=== PATIENT | male | born 1945 | race Caucasian/White ===

== ENCOUNTER 2020-12-30 08:45 | Emergency (ER) | payer MEDICARE, BC ==
[~2020-12-30] VITALS: Ht 182.9 cm; Wt 145.4 kg
[~2020-12-30 08:45] MED LIST: APIX5TAB3 PO; CARV-50 PO; CHOL50004 PO; CYAN500L3 PO; FENO135C PO; FURO40TA4 PO; GLIM4TAB7 PO; HYDR-4069 PO; IRON150C13 PO; LANTUS SUBCUT; NIA500ERT PO; SIMV-45 PO; SITA100T15 PO
[2020-12-30 09:11] VITALS: BP 153/63
[2020-12-30] MEDS ORDERED: ONDA4TAB6 PO (11:55)
[2020-12-30] MEDS ORDERED: HYDR-3965 PO (11:55)
[2020-12-30] MEDS ORDERED: ketorolac tromethamine 15mg/ml inj. IM ONE (11:55)
== END 2020-12-30 12:47 | disposition home or self-care (01) ==
LOC: ER 08:46
DX: S52.615A Nondisplaced fracture of left ulna styloid process, initial encounter for closed fracture (principal); I48.91 Unspecified atrial fibrillation; I10 Essential (primary) hypertension; I25.2 Old myocardial infarction; E11.9 Type 2 diabetes mellitus without complications; Z95.0 Presence of cardiac pacemaker; Z72.89 Other problems related to lifestyle; Z98.890 Other specified postprocedural states; Z88.8 Allergy status to other drugs, medicaments and biological substances; Z79.4 Long term (current) use of insulin; Z79.899 Other long term (current) drug therapy; X58.XXXA Exposure to other specified factors, initial encounter; Y93.89 Activity, other specified; Y92.89 Other specified places as the place of occurrence of the external cause; Y99.8 Other external cause status
CPT/HCPCS: 29125; 73110; 82948; 99284

== ENCOUNTER 2021-10-01 12:52 | Inpatient (IN) | payer MEDICARE, BC ==
[~2021-10-01] VITALS: Ht 180.3 cm; Wt 143.2 kg
[~2021-10-01 12:52] MED LIST changes: +ONDA4TAB6 PO
[2021-10-01 13:35] LABS: EOSINOPHILS # (AUTO) 0.1 X10'3 (0-0.9); HEMOGLOBIN 10.2 g/dl (14.0-17.9); LYMPHOCYTES # (AUTO) 0.8 X10'3 (1.1-4.8); MEAN CORPUSCULAR HGB CONC 32.2 g/dL (33.0-36.5); MEAN PLATELET VOLUME 8.3 FL (7.4-10.4); MONOCYTES # (AUTO) 1.7 X10'3 (0-0.9); WHITE BLOOD COUNT 6.9 X10'3 (4.5-11.0)
[2021-10-01 13:39] LABS: BASOPHILS % (AUTO) 0.5 % (0-1); HEMATOCRIT 31.6 % (42.0-52.0); LYMPHOCYTES % (AUTO) 12.1 % (21-51); MEAN CORPUSCULAR HEMOGLOBIN 29.8 PG (27.0-31.0); MEAN CORPUSCULAR VOLUME 92.5 FL (78-98); MONOCYTES % (AUTO) 24.6 % (2-12); NEUTROPHILS # (AUTO) 4.3 X10'3 (1.8-7.7); NEUTROPHILS % (AUTO) 61.8 % (42-75); PLATELET COUNT 149 X10'3 (140-440); RED BLOOD COUNT 3.42 X10'6 (4.70-6.10); RED CELL DISTRIBUTION WIDTH 15.8 % (11.5-14.5)
[2021-10-01 13:52] LABS: ALANINE AMINOTRANSFERASE 21 U/L (12-78); ALBUMIN/GLOBULIN RATIO 0.7 (1.1-1.5); ALKALINE PHOSPHATASE 30 IU/L (46-116); ANION GAP 11 (8-16); ASPARTATE AMINO TRANSFERASE 37 U/L (10-37); BILIRUBIN,TOTAL 0.6 MG/DL (0.1-1.0); BLOOD UREA NITROGEN 70 MG/DL (7-18); CALCIUM 9.3 MG/DL (8.5-10.1); CHLORIDE 101 MMOL/L (99-107); CREATININE 4.68 MG/DL (0.60-1.10); GLUCOSE 131 MG/DL (70-104); POTASSIUM 3.8 MMOL/L (3.5-5.1); SODIUM 139 MMOL/L (135-145); TOTAL PROTEIN 7.5 G/DL (6.4-8.2); eGFR 12 ML/MIN
[2021-10-01 14:09] LABS: PLATELET ESTIMATE NORMAL; TOTAL CELLS COUNTED 100
--- NOTE | 2021-10-01 15:10 | NUR ---
PT PLACED IN ROOM. MOD ASSIST TO TRANSFER PT TO [facility]. PT IN WHEELCHAIR AT BASELINE D/T A "BAD HIP AND OTHER PROBLEMS"
[2021-10-01] MEDS ORDERED: APIX2.5T PO (17:34)
[2021-10-01] MEDS ORDERED: ISOS30TA84 PO (17:34)
[2021-10-01] MEDS ORDERED: SEVE800T28 PO (17:34)
[2021-10-01] MEDS ORDERED: FENO135C4 PO (17:34)
[2021-10-01] MEDS ORDERED: SACU1TAB7 PO (17:34)
[2021-10-01] MEDS ORDERED: LANTUS SQ (17:34)
[2021-10-01] MEDS ORDERED: FURO80TA3 PO (17:34)
[2021-10-01] MEDS ORDERED: SITA100T11 PO (17:34)
[2021-10-01] MEDS ORDERED: METO-384 PO (17:35)
[2021-10-01] MEDS ORDERED: INSU100I8 (17:35)
[2021-10-01] MEDS ORDERED: mag hydrox/Alum hydrox/simeth 30ml oral suspension PO PRN (17:50)
[2021-10-01] MEDS ORDERED: magnesium hydroxide 30ml (MOM) UD suspension PO PRN (17:50)
[2021-10-01] MEDS ORDERED: ondansetron/PF 4mg/2ml inj IV PRN (17:50)
[2021-10-01] MEDS ORDERED: dextrose 50%-water 50ml dispensing syringe IV PRN ×2 (18:55)
[2021-10-01] MEDS ORDERED: glucagon, human recombinant 1mg kit SUBCUT PRN (18:55)
[2021-10-01] MEDS ORDERED: DEXTROSE 15 GM of carb/4 tabs (each vial/BOTTLE has 4 tablets) PO PRN ×2 (18:55)
[2021-10-01 19:23] LABS: HEMOGLOBIN A1C 5.8 % (4.5-6.2)
[2021-10-01] MEDS ORDERED: insulin glargine (Lantus) pen - multi-dose SQ SCH (20:00)
[2021-10-01] MEDS: docusate sod 100mg capsule PO SCH (21:06)
[2021-10-01] MEDS: sevelamer carbonate 800mg tablet PO SCH (21:35)
[2021-10-01] MEDS: sacubitril/valsartan 49mg-51mg tablet PO SCH (21:35)
[2021-10-01] MEDS: insulin glargine (Lantus) pen - multi-dose SQ SCH (22:03)
[2021-10-02] MEDS: heparin, porcine 5000 units/ml vial SQ SCH ×4 (00:30→16:42)
[2021-10-02 02:13] LABS: ALBUMIN 2.9 G/DL (3.4-5.0); ANION GAP 11 (8-16); BASOPHILS # (AUTO) 0.1 X10'3 (0-0.2); BASOPHILS % (AUTO) 0.7 % (0-1); BLOOD UREA NITROGEN 74 MG/DL (7-18); BUN/CREATININE RATIO 15.9 (5.4-32.0); CALCIUM 9.4 MG/DL (8.5-10.1); CHLORIDE 103 MMOL/L (99-107); CREATININE 4.65 MG/DL (0.60-1.10); EOSINOPHILS # (AUTO) 0.2 X10'3 (0-0.9); EOSINOPHILS % (AUTO) 2.2 % (0-6); GLUCOSE 174 MG/DL (70-104); HEMATOCRIT 31.2 % (42.0-52.0); HEMOGLOBIN 10.2 g/dl (14.0-17.9); LYMPHOCYTES % (AUTO) 14.3 % (21-51); MEAN CORPUSCULAR HEMOGLOBIN 30.5 PG (27.0-31.0); MEAN CORPUSCULAR HGB CONC 32.8 g/dL (33.0-36.5); MEAN PLATELET VOLUME 8.4 FL (7.4-10.4); MONOCYTES # (AUTO) 1.8 X10'3 (0-0.9); MONOCYTES % (AUTO) 24.5 % (2-12); NEUTROPHILS # (AUTO) 4.2 X10'3 (1.8-7.7); NEUTROPHILS % (AUTO) 58.3 % (42-75); PLATELET COUNT 138 X10'3 (140-440); POTASSIUM 3.4 MMOL/L (3.5-5.1); RED BLOOD COUNT 3.35 X10'6 (4.70-6.10); RED CELL DISTRIBUTION WIDTH 15.7 % (11.5-14.5); SODIUM 141 MMOL/L (135-145); TOTAL CARBON DIOXIDE 26.6 MMOL/L (24-32); WHITE BLOOD COUNT 7.2 X10'3 (4.5-11.0); eGFR 12 ML/MIN
[2021-10-02 03:43] VITALS: BP 138/65
[2021-10-02 04:06] LABS: PLATELET ESTIMATE DECREASED; TOTAL CELLS COUNTED 100
--- NOTE | 2021-10-02 04:39 | NUR ---
0300: Pt admitted to the unit brought by transport staff. All personal belongings accounted for. Two RN skin assessment completed. Noted open area to bilateral buttocks. Redness to bilateral lower extremities, and dry skin. open area to L/ear. Picture taken and in patient's chart. All needs provided. Call light within reach. Pt is comfortably resting in bed at this time.
[2021-10-02 06:00] VITALS: BP 131/61
--- NOTE | 2021-10-02 06:43 | NUR ---
Patient in room PCU 3014. I have received report from Jaky FLORIAN and had the opportunity to ask questions and assume patient care.
--- NOTE | 2021-10-02 06:56 | NUR ---
Problems reprioritized. Patient report given, CHIQUI Allen, questions answered & plan of care reviewed with .
[2021-10-02] MEDS ORDERED: heparin 1,000unit/ml 10ml vial 10 ML IV ONE (08:00)
[2021-10-02] MEDS ORDERED: EPOETIN ALFA-EPBX 20,000 UNIT/ML 1 ML MDV IV ONE (08:00)
[2021-10-02] MEDS ORDERED: heparin 1,000 units/ml 10ml inj HE ONE ×2 (08:00)
[2021-10-02] MEDS ORDERED: normal saline 1000ml 250 ML IV PRN (08:00)
[2021-10-02] MEDS: fenofibrate 145mg tablet PO SCH (08:20)
[2021-10-02] MEDS: sacubitril/valsartan 49mg-51mg tablet PO SCH ×2 (08:20→20:49)
[2021-10-02] MEDS: docusate sod 100mg capsule PO SCH ×2 (08:20→20:49)
[2021-10-02] MEDS: isosorbide mononitrate 30mg tab.SR.24H PO SCH (08:20)
[2021-10-02] MEDS: metoprolol succinate 25mg (24-HOUR) SR. Tablet PO SCH (08:20)
[2021-10-02] MEDS: sevelamer carbonate 800mg tablet PO SCH ×3 (09:34→17:48)
[2021-10-02] MEDS: insulin Lispro (HumaLOG) vial - multi-dose SQ SCH ×3 (09:36→21:06)
[2021-10-02] MEDS ORDERED: LIDOcaine 1% (10mg/ml) 2ml vial ONE (09:53)
[2021-10-02] MEDS ORDERED: heparin 1,000unit/ml 10ml vial 10 ML ONE (09:53)
[2021-10-02] MEDS ORDERED: fentaNYL/PF 50MCG/1 ML 2ML syringe ONE (09:53)
--- NOTE | 2021-10-02 10:20 | NUR ---
patient taken to IR for dialysis catheter placement
[2021-10-02 11:00] VITALS: BP 128/79
--- NOTE | 2021-10-02 11:30 | NUR ---
Returned with TDC, Dialysis nurse at bedside
--- NOTE | 2021-10-02 12:18 | NUR ---
Dialysis just started, will recheck in 2 hrs when dialysis done and pt able to eat Addendum: 10/02/21 at 1218 by Adam Ramos RN Amended: Links added.
[2021-10-02 15:00] VITALS: BP 125/66
[2021-10-02 18:00] VITALS: BP 128/77
--- NOTE | 2021-10-02 18:30 | NUR ---
Patient in room U 3014. I have received report from CHIQUI Allen and had the opportunity to ask questions and assume patient care. Patient just finished dinner and is sleeping comfortably.
--- NOTE | 2021-10-02 18:36 | NUR ---
Problems reprioritized. Patient report given, questions answered & plan of care reviewed with MAMIE FLORIAN.
--- NOTE | 2021-10-02 20:00 | NUR ---
I agree with ROWENA Baker's physical assessment.
[2021-10-02] MEDS: insulin glargine (Lantus) pen - multi-dose SQ SCH (21:10)
[2021-10-03] MEDS: heparin, porcine 5000 units/ml vial SQ SCH ×2 (00:47→07:34)
[2021-10-03 02:00] VITALS: BP 132/55
[2021-10-03 06:00] VITALS: BP 126/58
--- NOTE | 2021-10-03 06:40 | NUR ---
Problems reprioritized. Patient report given, questions answered & plan of care reviewed with CHIQUI Ramos.
[2021-10-03 07:12] LABS: BASOPHILS % (AUTO) 0.5 % (0-1); EOSINOPHILS # (AUTO) 0.2 X10'3 (0-0.9); EOSINOPHILS % (AUTO) 2.5 % (0-6); HEMATOCRIT 31.1 % (42.0-52.0); HEMOGLOBIN 10.1 g/dl (14.0-17.9); LYMPHOCYTES # (AUTO) 1.6 X10'3 (1.1-4.8); LYMPHOCYTES % (AUTO) 18.9 % (21-51); MEAN CORPUSCULAR HEMOGLOBIN 30.1 PG (27.0-31.0); MEAN CORPUSCULAR HGB CONC 32.6 g/dL (33.0-36.5); MEAN CORPUSCULAR VOLUME 92.4 FL (78-98); MEAN PLATELET VOLUME 8.8 FL (7.4-10.4); MONOCYTES # (AUTO) 1.5 X10'3 (0-0.9); MONOCYTES % (AUTO) 17.9 % (2-12); NEUTROPHILS # (AUTO) 4.9 X10'3 (1.8-7.7); NEUTROPHILS % (AUTO) 60.2 % (42-75); PLATELET COUNT 138 X10'3 (140-440); RED BLOOD COUNT 3.36 X10'6 (4.70-6.10); RED CELL DISTRIBUTION WIDTH 15.9 % (11.5-14.5); WHITE BLOOD COUNT 8.2 X10'3 (4.5-11.0)
[2021-10-03] MEDS: docusate sod 100mg capsule PO SCH ×2 (07:31→20:16)
[2021-10-03] MEDS: fenofibrate 145mg tablet PO SCH (07:31)
[2021-10-03] MEDS: metoprolol succinate 25mg (24-HOUR) SR. Tablet PO SCH (07:31)
[2021-10-03] MEDS: sevelamer carbonate 800mg tablet PO SCH ×3 (07:32→20:16)
[2021-10-03] MEDS: isosorbide mononitrate 30mg tab.SR.24H PO SCH (07:32)
[2021-10-03 07:42] LABS: ALBUMIN 2.8 G/DL (3.4-5.0); ANION GAP 11 (8-16); BLOOD UREA NITROGEN 63 MG/DL (7-18); CALCIUM 8.7 MG/DL (8.5-10.1); CHLORIDE 105 MMOL/L (99-107); CREATININE 4.19 MG/DL (0.60-1.10); GLUCOSE 172 MG/DL (70-104); POTASSIUM 3.5 MMOL/L (3.5-5.1); SODIUM 141 MMOL/L (135-145); TOTAL CARBON DIOXIDE 25.1 MMOL/L (24-32); eGFR 14 ML/MIN
[2021-10-03 08:14] LABS: ANISOCYTOSIS 1+; PLATELET ESTIMATE DECREASED; TOTAL CELLS COUNTED 100
[2021-10-03] MEDS: sacubitril/valsartan 49mg-51mg tablet PO SCH ×2 (09:32→20:16)
[2021-10-03] MEDS: insulin Lispro (HumaLOG) vial - multi-dose SQ SCH ×3 (09:42→20:37)
[2021-10-03 11:00] VITALS: BP 105/56
[2021-10-03] MEDS ORDERED: EPOETIN ALFA-EPBX 20,000 UNIT/ML 1 ML MDV IV ONE (11:30)
[2021-10-03] MEDS ORDERED: normal saline 1000ml 250 ML IV PRN (11:30)
[2021-10-03] MEDS ORDERED: heparin 1,000unit/ml 10ml vial 10 ML IV ONE (11:30)
[2021-10-03] MEDS ORDERED: heparin 1,000 units/ml 10ml inj HE ONE ×2 (11:35)
[2021-10-03 15:00] VITALS: BP 128/63
[2021-10-03 16:17] LABS: HBSAG SCREEN Negative (Negative)
[2021-10-03 18:00] VITALS: BP 120/61
--- NOTE | 2021-10-03 18:48 | NUR ---
Problems reprioritized. Patient report given, questions answered & plan of care reviewed with CHIQUI Dunlap.
[2021-10-03] MEDS: acetaminophen 325mg tablet PO PRN (20:16)
[2021-10-03] MEDS: apixaban 2.5mg tablet PO SCH (20:17)
[2021-10-03] MEDS: insulin glargine (Lantus) pen - multi-dose SQ SCH (23:10)
[2021-10-04 02:00] VITALS: BP 147/47
[2021-10-04] MEDS: acetaminophen 325mg tablet PO PRN ×3 (03:14→16:29)
[2021-10-04 06:00] VITALS: BP 97/56
[2021-10-04 06:55] LABS: ALBUMIN 2.9 G/DL (3.4-5.0); ANION GAP 9 (8-16); BLOOD UREA NITROGEN 53 MG/DL (7-18); BUN/CREATININE RATIO 12.9 (5.4-32.0); CHLORIDE 103 MMOL/L (99-107); CREATININE 4.12 MG/DL (0.60-1.10); GLUCOSE 184 MG/DL (70-104); POTASSIUM 3.7 MMOL/L (3.5-5.1); SODIUM 138 MMOL/L (135-145); TOTAL CARBON DIOXIDE 26.1 MMOL/L (24-32); eGFR 14 ML/MIN
[2021-10-04 07:09] LABS: BASOPHILS # (AUTO) 0.1 X10'3 (0-0.2); BASOPHILS % (AUTO) 0.6 % (0-1); EOSINOPHILS # (AUTO) 0.3 X10'3 (0-0.9); EOSINOPHILS % (AUTO) 2.8 % (0-6); HEMATOCRIT 33.6 % (42.0-52.0); HEMOGLOBIN 10.7 g/dl (14.0-17.9); LYMPHOCYTES # (AUTO) 2.3 X10'3 (1.1-4.8); LYMPHOCYTES % (AUTO) 22.8 % (21-51); MEAN CORPUSCULAR HEMOGLOBIN 29.6 PG (27.0-31.0); MEAN CORPUSCULAR VOLUME 92.5 FL (78-98); MEAN PLATELET VOLUME 9.1 FL (7.4-10.4); MONOCYTES # (AUTO) 1.4 X10'3 (0-0.9); MONOCYTES % (AUTO) 14.3 % (2-12); NEUTROPHILS % (AUTO) 59.5 % (42-75); PLATELET COUNT 177 X10'3 (140-440); RED BLOOD COUNT 3.64 X10'6 (4.70-6.10); RED CELL DISTRIBUTION WIDTH 16.1 % (11.5-14.5)
[2021-10-04] MEDS ORDERED: EPOETIN ALFA-EPBX 20,000 UNIT/ML 1 ML MDV IV ONE (08:00)
[2021-10-04] MEDS: docusate sod 100mg capsule PO SCH (08:00)
[2021-10-04] MEDS ORDERED: heparin 1,000unit/ml 10ml vial 10 ML IV ONE (08:00)
[2021-10-04] MEDS ORDERED: normal saline 1000ml 250 ML IV PRN (08:00)
[2021-10-04] MEDS ORDERED: heparin 1,000 units/ml 10ml inj HE ONE ×2 (08:00)
[2021-10-04] MEDS: sacubitril/valsartan 49mg-51mg tablet PO SCH (08:37)
[2021-10-04] MEDS: sevelamer carbonate 800mg tablet PO SCH ×2 (08:37→13:03)
[2021-10-04] MEDS: apixaban 2.5mg tablet PO SCH (08:37)
[2021-10-04] MEDS: isosorbide mononitrate 30mg tab.SR.24H PO SCH (08:37)
[2021-10-04] MEDS: metoprolol succinate 25mg (24-HOUR) SR. Tablet PO SCH (08:38)
[2021-10-04] MEDS: fenofibrate 145mg tablet PO SCH (08:39)
[2021-10-04] MEDS: insulin Lispro (HumaLOG) vial - multi-dose SQ SCH (10:10)
[2021-10-04 11:00] VITALS: BP 102/38
--- NOTE | 2021-10-04 11:35 | NUR ---
Initial: Pt admitted w/ acute on chronic renal failure, possible acute tubular necrosis, has acutely been on HD for the last 3 days per EMR. Currently on Renal diet w/ 100% intake of meals, could benefit from Double protein WL to help meet increased needs while on HD. Recommend obtaining routine Phos lab if MD agreeable as pt may not need Renal diet if electrolytes are WNL. Last HD treatment 10/03 w/ 2.4L out per documentation. LBM 10/03 receiving routine colace. Will continue to monitor. Recs: 1. Continue Renal diet as tolerated; consider liberalizing to Regular or 2gNa 2. Double Protein WL while pt on HD 3. Routine Phos labs if MD agreeable; pt may not need Renal diet 4. Bowel care per rx 5. Scaled wts w/ HD Addendum: 10/04/21 at [address] Amended: Links added.
[2021-10-04 12:38] LABS: HEP B CORE AB, TOT Negative (Negative)
--- NOTE | 2021-10-04 13:55 | NUR ---
PT has been walking around with patient in room. Going from bed to toilet to chair. Pt refused PT.
[2021-10-04 15:00] VITALS: BP 112/66
--- NOTE | 2021-10-04 17:00 | NUR ---
Pt stable for d/c reviewed d/c ppwk with patient during his HD treatment. Pt verbalized understanding and did not have any questions, comments, or concerns at this time. Signature page signed and placed in chart. PIV was already removed when Dr Gerard gave me the NO PIV order this AM. Will advise NOC shift nurse to take d/c w/c photo after HD for chart, this has been explained to patient as well.
[2021-10-04 18:05] VITALS: BP 122/63
--- NOTE | 2021-10-04 18:30 | NUR ---
Problems reprioritized. Patient report given, questions answered & plan of care reviewed with CHIQUI Dunlap - NOC nurse to take d/c W/C photo upon d/c.
--- NOTE | 2021-10-04 20:19 | NUR ---
patient discharged home at 1830. Taken by w/c to car with . Vitals stable.
== END 2021-10-04 19:30 | disposition home or self-care (01) | DRG 673 ==
LOC: ER 12:53 → ED HOLD 17:51 → PCU 3S 10-02 02:33
PROVIDERS: ADMIT Family Medicine; ATTEND Family Medicine
PROC: 0JH63XZ Insertion of Tunneled Vascular Access Device into Chest Subcutaneous Tissue and Fascia, Percutaneous Approach (ICD-10-PCS; principal; 2021-10-02)
PROC: 02HV33Z Insertion of Infusion Device into Superior Vena Cava, Percutaneous Approach (ICD-10-PCS; 2021-10-02)
PROC: B5181ZA Fluoroscopy of Superior Vena Cava using Low Osmolar Contrast, Guidance (ICD-10-PCS; 2021-10-02)
PROC: B548ZZA Ultrasonography of Superior Vena Cava, Guidance (ICD-10-PCS; 2021-10-02)
PROC: 5A09357 Assistance with Respiratory Ventilation, Less than 24 Consecutive Hours, Continuous Positive Airway Pressure (ICD-10-PCS; 2021-10-02)
PROC: 5A1D70Z Performance of Urinary Filtration, Intermittent, Less than 6 Hours Per Day (ICD-10-PCS; 2021-10-02)
PROC: 5A09357 Assistance with Respiratory Ventilation, Less than 24 Consecutive Hours, Continuous Positive Airway Pressure (ICD-10-PCS; 2021-10-03)
PROC: 5A1D70Z Performance of Urinary Filtration, Intermittent, Less than 6 Hours Per Day (ICD-10-PCS; 2021-10-03)
PROC: 5A09357 Assistance with Respiratory Ventilation, Less than 24 Consecutive Hours, Continuous Positive Airway Pressure (ICD-10-PCS; 2021-10-04)
PROC: 5A1D70Z Performance of Urinary Filtration, Intermittent, Less than 6 Hours Per Day (ICD-10-PCS; 2021-10-04)
DX: N17.9 Acute kidney failure, unspecified (principal); I50.23 Acute on chronic systolic (congestive) heart failure; Z68.41 Body mass index [BMI] 40.0-44.9, adult; I42.0 Dilated cardiomyopathy; I13.2 Hypertensive heart and chronic kidney disease with heart failure and with stage 5 chronic kidney disease, or end stage renal disease; N18.5 Chronic kidney disease, stage 5; I48.0 Paroxysmal atrial fibrillation; E78.5 Hyperlipidemia, unspecified; E66.01 Morbid (severe) obesity due to excess calories; G47.30 Sleep apnea, unspecified; G89.29 Other chronic pain; M25.559 Pain in unspecified hip; D63.8 Anemia in other chronic diseases classified elsewhere; R26.2 Difficulty in walking, not elsewhere classified; E11.22 Type 2 diabetes mellitus with diabetic chronic kidney disease; I25.2 Old myocardial infarction; Z79.01 Long term (current) use of anticoagulants; Z79.4 Long term (current) use of insulin; Z79.84 Long term (current) use of oral hypoglycemic drugs; Z79.899 Other long term (current) drug therapy; Z82.5 Family history of asthma and other chronic lower respiratory diseases; Z88.8 Allergy status to other drugs, medicaments and biological substances; Z83.3 Family history of diabetes mellitus
CPT/HCPCS: 36415; 36558; 71045; 80048; 80053; 82948; 83036; 83880; 84484; 85007; 85025; 86704; 86706; 87081; 87340; 93005; 99285; A9270; C1750; C1769; C1894; G0257; G0378; J1644; J1815; J3010; J3490; Q4081

== ENCOUNTER 2022-12-25 11:50 | Inpatient (IN) | payer MEDICARE, BC ==
[~2022-12-25] VITALS: Ht 170.2 cm; Wt 134.6 kg
[2022-12-25] VITALS (7 sets, daily range): BP systolic 84–118; BP diastolic 25–47; PULSE 86–102; RESP 11–19; O2SAT 91–95
[~2022-12-25 11:50] MED LIST changes: +APIX2.5T PO; +ASCO500C17 PO; +ASCO500C18 PO; -CARV-50 PO; +CHOL100025 PO; +CHOL400T57 PO; -CHOL50004 PO; +CYAN-104 PO; +CYAN-34 PO; -CYAN500L3 PO; -FENO135C PO; +FENO135C4 PO; +FERR-119 PO; +FURO-149 PO; -FURO40TA4 PO; +FURO80TA3 PO; -GLIM4TAB7 PO; +HYDR-3964 PO; -HYDR-4069 PO; +HYDR-4294 PO; +INSU100C10 SQ; +INSU100I75; +INSU100I75 SQ; +INSU100I8; +INSU100V9 SQ; -IRON150C13 PO; +ISOS30TA84 PO; -LANTUS SUBCUT; +LINA5TAB4 PO; +METO-384 PO; -NIA500ERT PO; -ONDA4TAB6 PO; +OXYC-145 PO; +PATI8.4P PO; +PHO667C PO; +SACU1TAB PO; +SACU1TAB7 PO; +SEVE800T7; +SIMV-42 PO; -SITA100T15 PO
[2022-12-25 15:09] LABS: BASOPHILS % (AUTO) 0.3 % (0-1); EOSINOPHILS # (AUTO) 0.1 X10'3 (0-0.9); EOSINOPHILS % (AUTO) 1.5 % (0-6); HEMATOCRIT 30.4 % (42.0-52.0); HEMOGLOBIN 10.1 g/dl (14.0-17.9); LYMPHOCYTES # (AUTO) 0.8 X10'3 (1.1-4.8); LYMPHOCYTES % (AUTO) 8.9 % (21-51); MEAN CORPUSCULAR HEMOGLOBIN 34.3 PG (27.0-31.0); MEAN CORPUSCULAR HGB CONC 33.2 g/dL (33.0-36.5); MEAN CORPUSCULAR VOLUME 103.5 FL (78-98); MEAN PLATELET VOLUME 8.7 FL (7.4-10.4); MONOCYTES # (AUTO) 0.7 X10'3 (0-0.9); MONOCYTES % (AUTO) 7.6 % (2-12); NEUTROPHILS # (AUTO) 7.2 X10'3 (1.8-7.7); NEUTROPHILS % (AUTO) 81.7 % (42-75); PLATELET COUNT 116 X10'3 (140-440); RED BLOOD COUNT 2.94 X10'6 (4.70-6.10); RED CELL DISTRIBUTION WIDTH 20.4 % (11.5-14.5); WHITE BLOOD COUNT 8.8 X10'3 (4.5-11.0)
[2022-12-25 15:33] LABS: ALANINE AMINOTRANSFERASE 20 U/L (12-78); ALBUMIN 2.5 G/DL (3.4-5.0); ALBUMIN/GLOBULIN RATIO 0.6 (1.1-1.5); ALKALINE PHOSPHATASE 56 IU/L (46-116); ANION GAP 13 (8-16); ASPARTATE AMINO TRANSFERASE 28 U/L (10-37); BILIRUBIN,TOTAL 0.6 MG/DL (0.1-1.0); BLOOD UREA NITROGEN 114 MG/DL (7-18); BUN/CREATININE RATIO 7.7 (10.0-20.0); CALCIUM 9.8 MG/DL (8.5-10.1); CHLORIDE 87 MMOL/L (99-107); CREATININE 14.85 MG/DL (0.60-1.10); GLUCOSE 109 MG/DL (70-104); PRO BRAIN NATRIURETIC PEPTIDE 11774 PG/ML (0-450); SODIUM 127 MMOL/L (135-145); TOTAL CARBON DIOXIDE 26.8 MMOL/L (24-32); eCRCL 4 ML/MIN; eGFR 3 ML/MIN
[2022-12-25 15:35] LABS: POTASSIUM 7.5 MMOL/L (3.5-5.1)
[2022-12-25] MEDS ORDERED: albumin (human) 25% 100ml IV 100 ML IV PRN (16:30)
[2022-12-25] MEDS ORDERED: EPOETIN ALFA-EPBX 20,000 UNIT/ML 1 ML MDV IV ONE (16:30)
[2022-12-25] MEDS ORDERED: heparin 1,000unit/ml 10ml vial 10 ML IV ONE (16:30)
[2022-12-25] MEDS ORDERED: mannitol 12.5gm/50mL VIAL IV ONE (16:30)
[2022-12-25] MEDS ORDERED: heparin 1,000 units/ml 10ml inj IV ONE (16:30)
[2022-12-25] MEDS ORDERED: heparin 1,000 units/ml 10ml inj HE ONE (16:35)
[2022-12-25 16:42] LABS: PLATELET ESTIMATE DECREASED
[2022-12-25 16:44] LABS: ANISOCYTOSIS 3+
[2022-12-25 16:49] LABS: MAGNESIUM 1.9 MG/DL (1.5-2.4)
[2022-12-25] MEDS ORDERED: calcium gluconate inj. 2 GM in normal saline 100ml IV soln 100 ML IV STA (16:50)
[2022-12-25] MEDS ORDERED: albuterol 2.5 MG/3 ML nebule NEB ONE (17:05)
[2022-12-25] MEDS ORDERED: acetaminophen 325mg tablet PO PRN ×2 (17:05)
[2022-12-25] MEDS ORDERED: ondansetron/PF 4mg/2ml inj IV PRN (17:05)
[2022-12-25] MEDS ORDERED: morphine 2 MG/ML inj. syringe IV PRN (17:05)
--- NOTE | 2022-12-25 17:07 | NUR ---
I agree with Delia GUAMAN's general assessment.
[2022-12-25] MEDS ORDERED: HYDROmorphone 1 mg/ml syringe IV ONE (17:15)
[2022-12-25] MEDS ORDERED: LidoCAINE 2% Topical Jelly 11mL syringe TOP ONE (17:22)
[2022-12-25] MEDS: morphine 4 MG/ML inj SYRINge IV PRN (17:28)
[2022-12-25] MEDS ORDERED: CALCIUM GLUC 1gm/50ml NACL,iso 50 ML IV ONE ×2 (17:30)
[2022-12-25] MEDS ORDERED: sodium bicarbonate (8.4%) inj. 150 MEQ in dextrose 5%-water 1,000 ML IV SCH (17:30)
--- NOTE | 2022-12-25 17:30 | NUR ---
Patient in room ED 16. I have received report from Delia FLORIAN and had the opportunity to ask questions and assume patient care.
[2022-12-25 17:37] LABS: APTT 35 SECONDS (22-32); INR 1.2 INR
[2022-12-25] MEDS: metroNIDAZOLE-Flagyl 500mg/NS 100 ML IV SCH (18:11)
--- NOTE | 2022-12-25 18:22 | NUR ---
Problems reprioritized. Patient report given, questions answered & plan of care reviewed with Alba FLORIAN.
[2022-12-25] MEDS ORDERED: insulin regular, human U-100 3ml vial - multi-dose SQ SCH (19:05)
[2022-12-25] MEDS ORDERED: glucagon, human recombinant 1mg kit SUBCUT PRN (19:05)
[2022-12-25] MEDS ORDERED: DEXTROSE 15 GM of carb/4 tabs (each vial/BOTTLE has 4 tablets) PO PRN ×2 (19:05)
[2022-12-25] MEDS ORDERED: dextrose 50%-water 50ml dispensing syringe IV PRN ×2 (19:05)
[2022-12-25] MEDS ORDERED: MESSAGE TO PHARMACY PO ONE (19:05)
[2022-12-25] MEDS ORDERED: HYDROmorphone 1 mg/ml syringe IM ONE (19:35)
--- NOTE | 2022-12-25 20:40 | NUR ---
pt accu check 71 pt alert and asymptomatic. pt medicated per mar dialysis continues
[2022-12-25 23:59] LABS: ALANINE AMINOTRANSFERASE 18 U/L (12-78); ALBUMIN 2.4 G/DL (3.4-5.0); ALBUMIN/GLOBULIN RATIO 0.6 (1.1-1.5); ALKALINE PHOSPHATASE 49 IU/L (46-116); ANION GAP 11 (8-16); ASPARTATE AMINO TRANSFERASE 25 U/L (10-37); BILIRUBIN,TOTAL 0.6 MG/DL (0.1-1.0); BLOOD UREA NITROGEN 55 MG/DL (7-18); BUN/CREATININE RATIO 6.4 (10.0-20.0); CHLORIDE 96 MMOL/L (99-107); GLUCOSE 108 MG/DL (70-104); POTASSIUM 4.6 MMOL/L (3.5-5.1); SODIUM 135 MMOL/L (135-145); TOTAL CARBON DIOXIDE 28.3 MMOL/L (24-32); TOTAL PROTEIN 6.3 G/DL (6.4-8.2); eCRCL 7 ML/MIN; eGFR 6 ML/MIN
[2022-12-26] VITALS (19 sets, daily range): BP systolic 87–111; BP diastolic 31–54; PULSE 88–116; RESP 12–26; O2SAT 87–97
[2022-12-26] MEDS: diatr meglu/diatrizoate 30ml oral sol.-(3 dose) bottle PO SCH ×3 (01:09→12:00)
[2022-12-26] MEDS: morphine 4 MG/ML inj SYRINge IV PRN ×4 (01:10→18:54)
[2022-12-26] MEDS: metroNIDAZOLE-Flagyl 500mg/NS 100 ML IV SCH ×3 (01:10→16:19)
[2022-12-26 06:43] LABS: BASOPHILS % (AUTO) 0.6 % (0-1); EOSINOPHILS # (AUTO) 0.2 X10'3 (0-0.9); EOSINOPHILS % (AUTO) 2.6 % (0-6); HEMATOCRIT 29.1 % (42.0-52.0); HEMOGLOBIN 9.4 g/dl (14.0-17.9); LYMPHOCYTES # (AUTO) 0.9 X10'3 (1.1-4.8); LYMPHOCYTES % (AUTO) 11.9 % (21-51); MEAN CORPUSCULAR HEMOGLOBIN 33.7 PG (27.0-31.0); MEAN CORPUSCULAR HGB CONC 32.3 g/dL (33.0-36.5); MEAN CORPUSCULAR VOLUME 104.6 FL (78-98); MEAN PLATELET VOLUME 8.9 FL (7.4-10.4); MONOCYTES # (AUTO) 0.8 X10'3 (0-0.9); MONOCYTES % (AUTO) 11.5 % (2-12); NEUTROPHILS # (AUTO) 5.3 X10'3 (1.8-7.7); NEUTROPHILS % (AUTO) 73.4 % (42-75); RED BLOOD COUNT 2.79 X10'6 (4.70-6.10); RED CELL DISTRIBUTION WIDTH 20.7 % (11.5-14.5); WHITE BLOOD COUNT 7.3 X10'3 (4.5-11.0)
[2022-12-26 07:12] LABS: ALANINE AMINOTRANSFERASE 18 U/L (12-78); ALBUMIN 2.5 G/DL (3.4-5.0); ALBUMIN/GLOBULIN RATIO 0.6 (1.1-1.5); ANION GAP 12 (8-16); ASPARTATE AMINO TRANSFERASE 28 U/L (10-37); BILIRUBIN,TOTAL 0.5 MG/DL (0.1-1.0); BLOOD UREA NITROGEN 56 MG/DL (7-18); BUN/CREATININE RATIO 6.2 (10.0-20.0); CALCIUM 8.9 MG/DL (8.5-10.1); CHLORIDE 95 MMOL/L (99-107); CREATININE 9.03 MG/DL (0.60-1.10); GLUCOSE 78 MG/DL (70-104); POTASSIUM 5.1 MMOL/L (3.5-5.1); SODIUM 134 MMOL/L (135-145); TOTAL CARBON DIOXIDE 27.3 MMOL/L (24-32); TOTAL PROTEIN 6.4 G/DL (6.4-8.2); eCRCL 7 ML/MIN; eGFR 6 ML/MIN
[2022-12-26 07:13] LABS: ALKALINE PHOSPHATASE 49 IU/L (46-116)
[2022-12-26 08:38] LABS: PLATELET COUNT 89 X10'3 (140-440)
[2022-12-26 08:39] LABS: PLATELET ESTIMATE DECREASED
[2022-12-26 08:41] LABS: ANISOCYTOSIS 3+
[2022-12-26] MEDS ORDERED: albumin (human) 25% 100 ML IV solution IV ONE (09:45)
[2022-12-26] MEDS ORDERED: VANCOmycin 2,000MG in NS 500ml IV soln IV ONE (10:10)
[2022-12-26] MEDS ORDERED: cefepime 1GM/NS ADD-VANTAGE 100 ML IV ONE (10:10)
[2022-12-26 10:47] LABS: BILIRUBIN,URINE SMALL (Neg); CLARITY,URINE CLOUDY (Clear); COLOR,URINE YELLOW (Yellow); GLUCOSE, URINE 100 mg/dl (Neg); KETONES,URINE TRACE mg/dl (Neg); LEUKOCYTE ESTERASE ,URINE MODERATE (Neg); NITRITES, URINE NEGATIVE (Neg); OCCULT BLOOD,URINE MODERATE (Neg); PROTEIN,URINE 100 mg/dl (Neg); UROBILINOGEN,URINE 0.2 E.U/dL (0.2-1.0)
[2022-12-26 10:53] LABS: UA COLLECTION TYPE STRAIGHT CATH
[2022-12-26] MEDS ORDERED: normal saline 1000ml 1,000 ML IV ONE (10:55)
[2022-12-26 10:56] LABS: TOTAL PROTEIN,URINE RANDOM 250.8 MG/DL
[2022-12-26] MEDS ORDERED: DEXTROSE 10 % AND 0.45 % NACL 1,000 ML IV SCH (11:10)
[2022-12-26] MEDS ORDERED: heparin 1,000 units/ml 10ml inj HE ONE ×2 (11:10→11:30)
[2022-12-26] MEDS ORDERED: NORepinephrine inj. 32 MG in normal saline 250ml IV soln 218 ML IV SCH (11:15)
[2022-12-26 11:18] LABS: BACTERIA,URINE 2+ /HPF (Neg); RBC,URINE TNTC /HPF (0-2); SQUAMOUS EPITHELIAL CELL,UR FEW /LPF (FEW); WBC,URINE TNTC /HPF (0-4)
[2022-12-26 11:19] LABS: TRANSITIONAL EPI CELLS,URINE FEW /HPF
[2022-12-26] MEDS ORDERED: heparin 1,000unit/ml 10ml vial 10 ML IV ONE (11:25)
[2022-12-26] MEDS ORDERED: heparin 1,000 units/ml 10ml inj IV ONE (11:25)
[2022-12-26] MEDS ORDERED: EPOETIN ALFA-EPBX 20,000 UNIT/ML 1 ML MDV IV ONE (11:25)
[2022-12-26 11:26] LABS: C DIFF ANTIGEN POSITIVE (NEGATIVE); C DIFF SPECIMEN=DIARRHEA? ACCEPTABLE; C DIFFICILE TOXINS A&B POSITIVE (Neg)
[2022-12-26 11:32] LABS: UA EOSINOPHILS NO EOS /HPF
[2022-12-26] MEDS: NORepinephrine 8mg/ 250ml NS 250 ML IV SCH ×2 (11:35→21:30)
[2022-12-26 11:41] LABS: MAGNESIUM 2.1 MG/DL (1.5-2.4); PHOSPHORUS 5.9 MG/DL (2.3-4.5)
[2022-12-26] MEDS ORDERED: iohexol 350MG/ML 100ml bottle IV ONE (11:46)
[2022-12-26] MEDS ORDERED: vancomcyin 250mg capsules PO ONE (12:00)
[2022-12-26] MEDS ORDERED: HYDROmorphone 1 mg/ml syringe IV ONE (12:10)
[2022-12-26] MEDS ORDERED: vancomycin/NS 1 GM ADD-VANTAGE 250 ML IV PRN (12:55)
[2022-12-26] MEDS ORDERED: vancomycin 125mg/5ml ORAL solution 5ml UD oral syringe PO ONE (13:00)
--- NOTE | 2022-12-26 14:41 | NUR ---
Consult for wound care, WOC in for patient assessment however patient is headed to CT scan, several nurses at the bedside prepping for transport. Primary nurse states wound nurse will have to return later for initial assessment. WOC will be unable to see patient today, plan to see Friday.
[2022-12-26] MEDS ORDERED: enoxaparin 100mg/ml syringe SUBCUT ONE (17:05)
[2022-12-26] MEDS: dextrose 5%-1/2 normal saline 1,000 ML IV SCH (17:54)
[2022-12-26] MEDS ORDERED: FURO80TA3 PO (18:35)
[2022-12-26] MEDS ORDERED: TIZA-205 PO (18:37)
[2022-12-26] MEDS: nystatin 15 GM powder TP SCH (20:08)
[2022-12-26] MEDS: enoxaparin 30mg/0.3ml syringe SUBCUT SCH (20:09)
[2022-12-26] MEDS: enoxaparin 40mg/0.4ml syringe SUBCUT SCH (20:09)
[2022-12-26] MEDS: vancomycin 125mg/5ml ORAL solution 5ml UD oral syringe PO SCH (20:55)
[2022-12-27] VITALS (25 sets, daily range): BP systolic 90–115; BP diastolic 33–52; PULSE 88–115; RESP 9–26; O2SAT 88–98
[2022-12-27] MEDS: metroNIDAZOLE-Flagyl 500mg/NS 100 ML IV SCH ×3 (00:15→15:01)
[2022-12-27] MEDS: morphine 4 MG/ML inj SYRINge IV PRN ×4 (00:15→22:16)
[2022-12-27] MEDS: vancomycin 125mg/5ml ORAL solution 5ml UD oral syringe PO SCH ×4 (01:41→22:00)
--- NOTE | 2022-12-27 06:30 | NUR ---
Patient in room CICU 2013. I have received report from ritchie and had the opportunity to ask questions and assume patient care.
[2022-12-27 06:36] LABS: BASOPHILS % (AUTO) 0.6 % (0-1); EOSINOPHILS # (AUTO) 0.1 X10'3 (0-0.9); EOSINOPHILS % (AUTO) 1.8 % (0-6); HEMATOCRIT 29.4 % (42.0-52.0); HEMOGLOBIN 9.4 g/dl (14.0-17.9); LYMPHOCYTES # (AUTO) 0.8 X10'3 (1.1-4.8); LYMPHOCYTES % (AUTO) 10.6 % (21-51); MEAN CORPUSCULAR HEMOGLOBIN 33.7 PG (27.0-31.0); MEAN CORPUSCULAR HGB CONC 31.9 g/dL (33.0-36.5); MEAN CORPUSCULAR VOLUME 105.5 FL (78-98); MEAN PLATELET VOLUME 8.7 FL (7.4-10.4); MONOCYTES # (AUTO) 1.2 X10'3 (0-0.9); MONOCYTES % (AUTO) 15.1 % (2-12); NEUTROPHILS # (AUTO) 5.7 X10'3 (1.8-7.7); NEUTROPHILS % (AUTO) 71.9 % (42-75); PLATELET COUNT 85 X10'3 (140-440); RED BLOOD COUNT 2.79 X10'6 (4.70-6.10); RED CELL DISTRIBUTION WIDTH 20.3 % (11.5-14.5); WHITE BLOOD COUNT 7.9 X10'3 (4.5-11.0)
[2022-12-27 07:19] LABS: ALANINE AMINOTRANSFERASE 15 U/L (12-78); ALBUMIN 2.8 G/DL (3.4-5.0); ALBUMIN/GLOBULIN RATIO 0.8 (1.1-1.5); ALKALINE PHOSPHATASE 42 IU/L (46-116); ANION GAP 13 (8-16); ASPARTATE AMINO TRANSFERASE 24 U/L (10-37); BILIRUBIN,TOTAL 0.7 MG/DL (0.1-1.0); BLOOD UREA NITROGEN 63 MG/DL (7-18); BUN/CREATININE RATIO 6.2 (10.0-20.0); CALCIUM 8.3 MG/DL (8.5-10.1); CHLORIDE 95 MMOL/L (99-107); CREATININE 10.22 MG/DL (0.60-1.10); GLUCOSE 172 MG/DL (70-104); SODIUM 132 MMOL/L (135-145); TOTAL CARBON DIOXIDE 23.7 MMOL/L (24-32); TOTAL PROTEIN 6.3 G/DL (6.4-8.2); eCRCL 6 ML/MIN; eGFR 5 ML/MIN
[2022-12-27] MEDS: NORepinephrine 8mg/ 250ml NS 250 ML IV SCH ×2 (07:25→17:20)
[2022-12-27 07:36] LABS: VANCOMYCIN,TROUGH 23.5 UG/ML (6.0-14.0)
[2022-12-27] MEDS: nystatin 15 GM powder TP SCH ×3 (08:00→22:00)
[2022-12-27] MEDS ORDERED: albumin (human) 25% 100 ML IV solution IV ONE (09:05)
[2022-12-27] MEDS: enoxaparin 40mg/0.4ml syringe SUBCUT SCH (10:27)
[2022-12-27] MEDS: enoxaparin 30mg/0.3ml syringe SUBCUT SCH (10:28)
[2022-12-27] MEDS ORDERED: PATIROMER CALCIUM SORBITEX 8.4 GM POWD.PACK PO SCH (11:15)
--- NOTE | 2022-12-27 11:55 | NUR ---
Initial: Pt admit for severe hyperkalemia and diarrhea with ESRD on HD though missed dialysis tx for almost a week d/t diarrhea per H&P. Pt positive for C.diff, documented with 5 BMs 12/26 per I&O. Per physician progress notes pt with sepsis. Currently NPO though receiving D5-1/2 NS at 50 mL/hr providing 204 kcal/day. Diet to slowly be advanced as appropriate per physician at [facility]. Noted pt with a low Chris of 10. 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 Wound care has been consulted, assessment pending at this time. Per EMR pt with T2DM, well controlled with last known A1c 6.5% 12/02 per EMR. DM education not warranted. Pt receiving HD at time of [facility]. Will continue to follow closely and make recommendations as appropriate. Recommendations: 1) Advance to renal diet as medically indicated 2) Monitor need for ONS/additional protein with diet advancement 3) Bowel care per physician; consider probiotic 4) Scaled weight this admit; subsequent scaled weights with HD Addendum: 12/27/22 at [address] Amended: Links added.
[2022-12-27] MEDS: dextrose 5%-1/2 normal saline 1,000 ML IV SCH (12:40)
[2022-12-27] MEDS: calcium acetate 667mg (PhosLO) capsule PO SCH ×2 (13:00→21:59)
[2022-12-27] MEDS: cefepime inj. 0.5 GM in normal saline 100ml IV soln 100 ML IV SCH (13:11)
[2022-12-27 13:46] LABS: BASOPHILS % (AUTO) 0.4 % (0-1); EOSINOPHILS # (AUTO) 0.1 X10'3 (0-0.9); EOSINOPHILS % (AUTO) 1.7 % (0-6); HEMATOCRIT 27.4 % (42.0-52.0); HEMOGLOBIN 8.9 g/dl (14.0-17.9); LYMPHOCYTES # (AUTO) 0.9 X10'3 (1.1-4.8); MEAN CORPUSCULAR HEMOGLOBIN 33.8 PG (27.0-31.0); MEAN CORPUSCULAR HGB CONC 32.4 g/dL (33.0-36.5); MEAN CORPUSCULAR VOLUME 104.5 FL (78-98); MEAN PLATELET VOLUME 8.6 FL (7.4-10.4); MONOCYTES # (AUTO) 0.9 X10'3 (0-0.9); NEUTROPHILS # (AUTO) 4.9 X10'3 (1.8-7.7); NEUTROPHILS % (AUTO) 71.9 % (42-75); PLATELET COUNT 89 X10'3 (140-440); RED BLOOD COUNT 2.62 X10'6 (4.70-6.10); RED CELL DISTRIBUTION WIDTH 20.7 % (11.5-14.5); WHITE BLOOD COUNT 6.8 X10'3 (4.5-11.0)
[2022-12-27 13:54] LABS: ANION GAP 14 (8-16); BLOOD UREA NITROGEN 32 MG/DL (7-18); BUN/CREATININE RATIO 5.5 (10.0-20.0); CALCIUM 8.7 MG/DL (8.5-10.1); CHLORIDE 99 MMOL/L (99-107); GLUCOSE 152 MG/DL (70-104); POTASSIUM 4.3 MMOL/L (3.5-5.1); SODIUM 136 MMOL/L (135-145); TOTAL CARBON DIOXIDE 22.8 MMOL/L (24-32); eCRCL 10 ML/MIN; eGFR 10 ML/MIN
[2022-12-27 14:08] LABS: HBSAG SCREEN Negative (Negative)
--- NOTE | 2022-12-27 15:05 | NUR ---
pt awake alert, ekwok- hears better in rt ear. k 6 this am- call to hd- nurse here and completed hd with 2l off- tolerated well with 1 25% alb for sbp 90's. ms x 2 today for back pain- effective. pt able to take cracker, jello, broth per mds orders. k rechecked post hd- k 4.3, bladder scan- 5cc, family at bs today. woc here to look at wounds rt foot and buttocks.
--- NOTE | 2022-12-27 16:24 | NUR ---
PRESSURE ULCER EDUCATION: DEFINITION: A pressure ulcer is an area of skin that breaks down when you stay in one position too long. The constant pressure against the skin reduces the blood flow to that area and the affected tissue dies. CAUSES: "Being bedridden or in a wheelchair "Fragile skin "Having a chronic condition, such as diabetes or vascular disease "Inability to move certain parts of your body without assistance "Older age "Incontinence of urine or stool SYMPTOMS: "A reddened area that DOES NOT turn white when pressed on - this can be the beginning of a pressure ulcer "A blister, deep sore or a crater - these can be advanced pressure ulcers FIRST AID: "Relieve the pressure on this area "Keep the area clean and dry "Call your primary doctor if you see any of the above symptoms "DO NOT massage the area "DO NOT use a donut shaped or ring shaped pillow- these actually interfere with the blood flow and cause complications PREVENTION: "Check for pressure ulcers everyday "Change position at least every two hours to relieve pressure "Use items that help relieve pressure- pillows, sheepskin, foam padding, and powders. "Keep skin clean and dry "Eat healthy well balanced meals "Exercise daily IF YOU SEE ANY OF THESE SYMPTOMS WHILE IN THE HOSPITAL - TELL YOUR NURSE IMMEDIATELY. IF YOU SEE ANY OF THESE SYMPTOMS WHILE AT HOME OR HAVE ANY QUESTIONS OR CONCERNS ABOUT PRESSURE ULCERS - CALL YOUR PRIMARY DOCTOR IMMEDIATELY. Addendum: 12/27/22 at 1624 by Roseanne Alvarez RN Amended: Links added.
[2022-12-27] MEDS: atorvastatin 20mg tablet PO SCH (21:59)
[2022-12-27] MEDS: apixaban 2.5mg tablet PO SCH (22:00)
[2022-12-27] MEDS: tizanidine 4mg tablet PO PRN (22:10)
--- NOTE | 2022-12-27 23:00 | NUR ---
pre-medicated with zanaflex and morphine in preparation for transfer to specialty bed. Procedure explained to patient, coached in methods for decreasing anxiety and hyperventilation. Transferred to specialty bed, pt jesusita procedure well.
[2022-12-28] VITALS (17 sets, daily range): BP systolic 78–105; BP diastolic 32–61; PULSE 71–94; RESP 11–21; TEMP 96.8–97.5; O2SAT 90–97
[2022-12-28] MEDS: metroNIDAZOLE-Flagyl 500mg/NS 100 ML IV SCH ×3 (00:22→16:05)
[2022-12-28] MEDS: vancomycin 125mg/5ml ORAL solution 5ml UD oral syringe PO SCH ×4 (02:37→20:52)
[2022-12-28] MEDS: NORepinephrine 8mg/ 250ml NS 250 ML IV SCH (03:15)
[2022-12-28 03:28] LABS: BASOPHILS % (AUTO) 0.5 % (0-1); EOSINOPHILS # (AUTO) 0.1 X10'3 (0-0.9); EOSINOPHILS % (AUTO) 1.4 % (0-6); HEMATOCRIT 26.1 % (42.0-52.0); HEMOGLOBIN 8.4 g/dl (14.0-17.9); LYMPHOCYTES # (AUTO) 0.7 X10'3 (1.1-4.8); LYMPHOCYTES % (AUTO) 12.5 % (21-51); MEAN CORPUSCULAR HEMOGLOBIN 34.2 PG (27.0-31.0); MEAN CORPUSCULAR HGB CONC 32.3 g/dL (33.0-36.5); MEAN CORPUSCULAR VOLUME 106.1 FL (78-98); MEAN PLATELET VOLUME 8.4 FL (7.4-10.4); MONOCYTES # (AUTO) 0.8 X10'3 (0-0.9); MONOCYTES % (AUTO) 13.3 % (2-12); NEUTROPHILS # (AUTO) 4.1 X10'3 (1.8-7.7); NEUTROPHILS % (AUTO) 72.3 % (42-75); PLATELET COUNT 88 X10'3 (140-440); RED BLOOD COUNT 2.46 X10'6 (4.70-6.10); RED CELL DISTRIBUTION WIDTH 20.8 % (11.5-14.5); WHITE BLOOD COUNT 5.7 X10'3 (4.5-11.0)
[2022-12-28 03:30] LABS: ALANINE AMINOTRANSFERASE 16 U/L (12-78); ALBUMIN 2.7 G/DL (3.4-5.0); ALBUMIN/GLOBULIN RATIO 0.8 (1.1-1.5); ALKALINE PHOSPHATASE 35 IU/L (46-116); ANION GAP 11 (8-16); ASPARTATE AMINO TRANSFERASE 22 U/L (10-37); BILIRUBIN,TOTAL 0.8 MG/DL (0.1-1.0); BLOOD UREA NITROGEN 38 MG/DL (7-18); BUN/CREATININE RATIO 5.3 (10.0-20.0); CALCIUM 8.9 MG/DL (8.5-10.1); CHLORIDE 100 MMOL/L (99-107); CREATININE 7.23 MG/DL (0.60-1.10); GLUCOSE 194 MG/DL (70-104); LACTATE DEHYDROGENASE 184 U/L (85-227); SODIUM 135 MMOL/L (135-145); TOTAL PROTEIN 6.1 G/DL (6.4-8.2); VANCOMYCIN,TROUGH 15.9 UG/ML (6.0-14.0); eCRCL 8 ML/MIN; eGFR 7 ML/MIN
--- NOTE | 2022-12-28 06:30 | NUR ---
Patient in room ORTHO 4006. I have received report from ritchie and had the opportunity to ask questions and assume patient care.
[2022-12-28 06:36] LABS: PLATELET ESTIMATE DECREASED
[2022-12-28 06:38] LABS: ANISOCYTOSIS 3+; ELLIPTOCYTES FEW; HYPOCHROMASIA 1+; POLYCHROMASIA FEW; ROULEAUX 1+
[2022-12-28] MEDS: dextrose 5%-1/2 normal saline 1,000 ML IV SCH (08:40)
[2022-12-28] MEDS: cyanocobalamin 500mcg tablet PO SCH (08:46)
[2022-12-28] MEDS: cholecalciferol (vitamin D3) 1,000 unit (25mcg) tablet PO SCH (08:46)
[2022-12-28] MEDS: tizanidine 4mg tablet PO PRN (08:46)
[2022-12-28] MEDS: ascorbic acid 500mg tablet PO SCH (08:46)
[2022-12-28] MEDS: apixaban 2.5mg tablet PO SCH ×2 (08:46→20:52)
[2022-12-28] MEDS: calcium acetate 667mg (PhosLO) capsule PO SCH ×3 (08:46→20:52)
[2022-12-28] MEDS: fenofibrate 145mg tablet PO SCH (08:48)
[2022-12-28] MEDS: nystatin 15 GM powder TP SCH ×3 (08:48→20:57)
--- NOTE | 2022-12-28 10:04 | NUR ---
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 Unable to provide nutrition intervention as pt remains NPO at this time. Will continue to follow closely and make recommendations as appropriate. Addendum: 12/28/22 at [address] Amended: Links added.
--- NOTE | 2022-12-28 10:20 | NUR ---
report given to bobo and tx by bed to room 4006. muscle relaxant given as discussed with by pt. ivf to willieo, left in blue port of horace. sbp 80's to 90's sys as per normal from hospitalist yesterday and also pt.
[2022-12-28] MEDS: normal saline 1000ml 1,000 ML IV SCH (10:45)
[2022-12-28] MEDS: cefepime inj. 0.5 GM in normal saline 100ml IV soln 100 ML IV SCH (12:04)
--- NOTE | 2022-12-28 12:26 | NUR ---
education spec Donell assessed arnol catheter due to leaking. He has capped it and put 4x4's around it and we will only use PIV in R AC for now which is working well.
[2022-12-28] MEDS: insulin Lispro (HumaLOG) vial - multi-dose SQ SCH ×2 (14:28→18:55)
--- NOTE | 2022-12-28 18:39 | NUR ---
Report given to Elizabeth FLORIAN, pt resting at this time with cpap on.
[2022-12-28] MEDS: LIDOcaine 5% patch TP SCH (20:00)
[2022-12-28] MEDS: atorvastatin 20mg tablet PO SCH (20:52)
[2022-12-29] VITALS (8 sets, daily range): BP systolic 113–165; BP diastolic 55–71; PULSE 89–111; RESP 16–21; TEMP 97.7–98.2; O2SAT 88–100
[2022-12-29] MEDS: metroNIDAZOLE-Flagyl 500mg/NS 100 ML IV SCH ×3 (00:03→16:14)
[2022-12-29] MEDS: vancomycin 125mg/5ml ORAL solution 5ml UD oral syringe PO SCH ×4 (02:16→19:54)
--- NOTE | 2022-12-29 06:06 | NUR ---
Problems reprioritized. Patient report given, questions answered & plan of care reviewed with Sasha Alicia RN.
[2022-12-29 06:22] LABS: ALANINE AMINOTRANSFERASE 18 U/L (12-78); ALBUMIN 2.8 G/DL (3.4-5.0); ALBUMIN/GLOBULIN RATIO 0.8 (1.1-1.5); ALKALINE PHOSPHATASE 44 IU/L (46-116); ANION GAP 15 (8-16); ASPARTATE AMINO TRANSFERASE 24 U/L (10-37); BILIRUBIN,TOTAL 0.9 MG/DL (0.1-1.0); BLOOD UREA NITROGEN 50 MG/DL (7-18); BUN/CREATININE RATIO 5.8 (10.0-20.0); CALCIUM 8.8 MG/DL (8.5-10.1); CHLORIDE 98 MMOL/L (99-107); CREATININE 8.69 MG/DL (0.60-1.10); GLUCOSE 208 MG/DL (70-104); POTASSIUM 5.1 MMOL/L (3.5-5.1); SODIUM 135 MMOL/L (135-145); TOTAL CARBON DIOXIDE 22.3 MMOL/L (24-32); TOTAL PROTEIN 6.3 G/DL (6.4-8.2); eCRCL 7 ML/MIN; eGFR 6 ML/MIN
[2022-12-29 06:23] LABS: BASOPHILS # (AUTO) 0.1 X10'3 (0-0.2); BASOPHILS % (AUTO) 0.7 % (0-1); EOSINOPHILS # (AUTO) 0.2 X10'3 (0-0.9); EOSINOPHILS % (AUTO) 2.3 % (0-6); HEMATOCRIT 28.6 % (42.0-52.0); HEMOGLOBIN 9.3 g/dl (14.0-17.9); LYMPHOCYTES # (AUTO) 0.9 X10'3 (1.1-4.8); LYMPHOCYTES % (AUTO) 11.3 % (21-51); MEAN CORPUSCULAR HEMOGLOBIN 34.2 PG (27.0-31.0); MEAN CORPUSCULAR HGB CONC 32.6 g/dL (33.0-36.5); MEAN CORPUSCULAR VOLUME 104.9 FL (78-98); MEAN PLATELET VOLUME 8.6 FL (7.4-10.4); MONOCYTES # (AUTO) 1.1 X10'3 (0-0.9); MONOCYTES % (AUTO) 14.3 % (2-12); NEUTROPHILS # (AUTO) 5.7 X10'3 (1.8-7.7); NEUTROPHILS % (AUTO) 71.4 % (42-75); PLATELET COUNT 107 X10'3 (140-440); RED BLOOD COUNT 2.73 X10'6 (4.70-6.10); RED CELL DISTRIBUTION WIDTH 20.9 % (11.5-14.5)
[2022-12-29] MEDS: cyanocobalamin 500mcg tablet PO SCH (08:24)
[2022-12-29] MEDS: ascorbic acid 500mg tablet PO SCH (08:24)
[2022-12-29] MEDS: apixaban 2.5mg tablet PO SCH ×2 (08:24→19:54)
[2022-12-29] MEDS: fenofibrate 145mg tablet PO SCH (08:24)
[2022-12-29] MEDS: cholecalciferol (vitamin D3) 1,000 unit (25mcg) tablet PO SCH (08:25)
[2022-12-29] MEDS: nystatin 15 GM powder TP SCH ×3 (08:25→19:59)
[2022-12-29] MEDS: calcium acetate 667mg (PhosLO) capsule PO SCH ×3 (08:25→19:54)
[2022-12-29] MEDS: insulin Lispro (HumaLOG) vial - multi-dose SQ SCH ×3 (08:42→19:54)
[2022-12-29] MEDS: LIDOcaine 5% patch TP SCH (08:46)
[2022-12-29] MEDS: cefepime inj. 0.5 GM in normal saline 100ml IV soln 100 ML IV SCH (12:33)
--- NOTE | 2022-12-29 18:32 | NUR ---
Report given to Elizabeth FLORIAN, pt resting comfortably at this time, no distress noted.
[2022-12-29] MEDS: atorvastatin 20mg tablet PO SCH (19:54)
[2022-12-29] MEDS: simethicone 80mg chew tab PO SCH (19:55)
[2022-12-29] MEDS: tizanidine 4mg tablet PO PRN (20:03)
[2022-12-30] VITALS (7 sets, daily range): BP systolic 96–112; BP diastolic 54–69; PULSE 61–92; RESP 16–21; TEMP 97.2–98.1; O2SAT 91–96
[2022-12-30] MEDS: metroNIDAZOLE-Flagyl 500mg/NS 100 ML IV SCH ×3 (00:21→16:04)
[2022-12-30] MEDS: vancomycin 125mg/5ml ORAL solution 5ml UD oral syringe PO SCH ×4 (02:04→20:33)
[2022-12-30] MEDS ORDERED: heparin 1,000 units/ml 10ml inj IV ONE (06:15)
[2022-12-30] MEDS ORDERED: normal saline 1000ml 250 ML IV PRN (06:15)
[2022-12-30] MEDS ORDERED: EPOETIN ALFA-EPBX 20,000 UNIT/ML 1 ML MDV IV ONE (06:15)
[2022-12-30] MEDS ORDERED: LIDOcaine 1% (10mg/ml) 2ml vial SQ ONE (06:15)
--- NOTE | 2022-12-30 06:32 | NUR ---
Problems reprioritized. Patient report given, questions answered & plan of care reviewed with CHIQUI Chambers.
--- NOTE | 2022-12-30 06:35 | NUR ---
Report received from Elizabeth FLORIAN
[2022-12-30 06:59] LABS: BASOPHILS % (AUTO) 0.5 % (0-1); EOSINOPHILS # (AUTO) 0.2 X10'3 (0-0.9); EOSINOPHILS % (AUTO) 2.2 % (0-6); HEMATOCRIT 28.5 % (42.0-52.0); HEMOGLOBIN 9.2 g/dl (14.0-17.9); LYMPHOCYTES # (AUTO) 1.6 X10'3 (1.1-4.8); LYMPHOCYTES % (AUTO) 20.6 % (21-51); MEAN CORPUSCULAR HGB CONC 32.2 g/dL (33.0-36.5); MEAN CORPUSCULAR VOLUME 105.5 FL (78-98); MEAN PLATELET VOLUME 8.3 FL (7.4-10.4); MONOCYTES # (AUTO) 1.1 X10'3 (0-0.9); MONOCYTES % (AUTO) 14.7 % (2-12); NEUTROPHILS # (AUTO) 4.7 X10'3 (1.8-7.7); PLATELET COUNT 104 X10'3 (140-440); RED CELL DISTRIBUTION WIDTH 20.5 % (11.5-14.5); WHITE BLOOD COUNT 7.6 X10'3 (4.5-11.0)
[2022-12-30 07:13] LABS: ALANINE AMINOTRANSFERASE 17 U/L (12-78); ALBUMIN 2.6 G/DL (3.4-5.0); ALBUMIN/GLOBULIN RATIO 0.7 (1.1-1.5); ALKALINE PHOSPHATASE 43 IU/L (46-116); ANION GAP 12 (8-16); ASPARTATE AMINO TRANSFERASE 22 U/L (10-37); BILIRUBIN,TOTAL 0.8 MG/DL (0.1-1.0); BLOOD UREA NITROGEN 58 MG/DL (7-18); BUN/CREATININE RATIO 5.7 (10.0-20.0); CALCIUM 8.7 MG/DL (8.5-10.1); CHLORIDE 100 MMOL/L (99-107); CREATININE 10.26 MG/DL (0.60-1.10); GLUCOSE 180 MG/DL (70-104); POTASSIUM 5.2 MMOL/L (3.5-5.1); SODIUM 136 MMOL/L (135-145); TOTAL CARBON DIOXIDE 23.9 MMOL/L (24-32); TOTAL PROTEIN 6.3 G/DL (6.4-8.2); eCRCL 6 ML/MIN; eGFR 5 ML/MIN
[2022-12-30] MEDS: cyanocobalamin 500mcg tablet PO SCH (07:51)
[2022-12-30] MEDS: cholecalciferol (vitamin D3) 1,000 unit (25mcg) tablet PO SCH (07:51)
[2022-12-30] MEDS: ascorbic acid 500mg tablet PO SCH (07:51)
[2022-12-30] MEDS: calcium acetate 667mg (PhosLO) capsule PO SCH ×3 (07:51→20:33)
[2022-12-30] MEDS: apixaban 2.5mg tablet PO SCH ×2 (07:51→20:32)
[2022-12-30] MEDS: nystatin 15 GM powder TP SCH ×3 (07:51→20:43)
[2022-12-30] MEDS: simethicone 80mg chew tab PO SCH ×3 (07:51→20:32)
[2022-12-30] MEDS: fenofibrate 145mg tablet PO SCH (07:51)
[2022-12-30] MEDS: LIDOcaine 5% patch TP SCH (08:00)
[2022-12-30] MEDS: insulin Lispro (HumaLOG) vial - multi-dose SQ SCH (08:08)
[2022-12-30] MEDS: normal saline 1000ml 1,000 ML IV SCH (09:00)
--- NOTE | 2022-12-30 09:00 | NUR ---
Adama not hung 0800 dose, patient had 2 antibiotics due at the same time. Dialysis this morning.
[2022-12-30] MEDS: cefepime inj. 0.5 GM in normal saline 100ml IV soln 100 ML IV SCH ×2 (11:00→17:32)
[2022-12-30 11:06] LABS: ANISOCYTOSIS 3+; PLATELET ESTIMATE DECREASED; SCHISTOCYTES FEW
--- NOTE | 2022-12-30 16:22 | NUR ---
F/u 12/30: Pt advanced to renal/carb controlled diet yesterday PO remains poor ~46% first 3 meals following initial 4 days of NPO overall not meeting nutrition needs. Pt seen by RD at bedside; pt confirms decreased appetite reports fear of fruits and vegetables given diarrhea. RD encouraged pt that current meals provided are all safe to consume and reviewed ONS options to assist w/ nutrition intake. Pt is agreeable to Nepro TIDWM to assist meeting needs; MD notified. LBM 12/30 diarrhea given c.diff per EMR. Will monitor for further PO/ONS acceptance and nutrition intervention needs this admit. Recommendations: 1) Continue renal/carb controlled diet per MD; liberalize to regular if poor intake persists 2) Nepro TIDWM to assist meeting needs; pending physician verification in EMR 3) consider probiotic per physician discretion 4) Scaled weight this admit; subsequent scaled weights with HD Addendum: 12/30/22 at [address] Amended: Links added.
[2022-12-30] MEDS: NUT.TX.IMP.RENAL FXN,LAC-REDUC (Nepro) 237 ML VANILLA PO SCH (18:30)
--- NOTE | 2022-12-30 18:41 | NUR ---
Report given to Evangelina CHIQUI
[2022-12-30] MEDS: atorvastatin 20mg tablet PO SCH (20:32)
[2022-12-30] MEDS: tizanidine 4mg tablet PO PRN (20:42)
[2022-12-31] MEDS: metroNIDAZOLE-Flagyl 500mg/NS 100 ML IV SCH ×3 (00:27→17:13)
[2022-12-31] MEDS: vancomycin 125mg/5ml ORAL solution 5ml UD oral syringe PO SCH ×3 (03:03→15:08)
[2022-12-31] MEDS: HYDROcodone/acetaminophen 5mg/325mg tablet PO PRN ×2 (05:20→17:20)
[2022-12-31 06:00] VITALS: BP 119/82; PULSE 93; RESP 21; TEMP 97.6
[2022-12-31 06:06] LABS: BASOPHILS % (AUTO) 0.6 % (0-1); EOSINOPHILS # (AUTO) 0.2 X10'3 (0-0.9); EOSINOPHILS % (AUTO) 2.5 % (0-6); HEMATOCRIT 29.2 % (42.0-52.0); HEMOGLOBIN 9.3 g/dl (14.0-17.9); LYMPHOCYTES % (AUTO) 15.2 % (21-51); MEAN CORPUSCULAR HEMOGLOBIN 33.6 PG (27.0-31.0); MEAN CORPUSCULAR HGB CONC 31.8 g/dL (33.0-36.5); MEAN CORPUSCULAR VOLUME 105.6 FL (78-98); MEAN PLATELET VOLUME 8.9 FL (7.4-10.4); MONOCYTES # (AUTO) 1.1 X10'3 (0-0.9); MONOCYTES % (AUTO) 15.7 % (2-12); NEUTROPHILS # (AUTO) 4.5 X10'3 (1.8-7.7); PLATELET COUNT 101 X10'3 (140-440); RED BLOOD COUNT 2.77 X10'6 (4.70-6.10); WHITE BLOOD COUNT 6.8 X10'3 (4.5-11.0)
[2022-12-31 06:21] LABS: ALANINE AMINOTRANSFERASE 16 U/L (12-78); ALBUMIN 2.5 G/DL (3.4-5.0); ALBUMIN/GLOBULIN RATIO 0.7 (1.1-1.5); ALKALINE PHOSPHATASE 41 IU/L (46-116); ANION GAP 10 (8-16); ASPARTATE AMINO TRANSFERASE 24 U/L (10-37); BILIRUBIN,TOTAL 0.7 MG/DL (0.1-1.0); BLOOD UREA NITROGEN 40 MG/DL (7-18); BUN/CREATININE RATIO 5.6 (10.0-20.0); CALCIUM 9.1 MG/DL (8.5-10.1); CHLORIDE 101 MMOL/L (99-107); CREATININE 7.14 MG/DL (0.60-1.10); GLUCOSE 236 MG/DL (70-104); POTASSIUM 4.8 MMOL/L (3.5-5.1); SODIUM 136 MMOL/L (135-145); TOTAL CARBON DIOXIDE 24.6 MMOL/L (24-32); TOTAL PROTEIN 6.3 G/DL (6.4-8.2); eCRCL 8 ML/MIN; eGFR 8 ML/MIN
--- NOTE | 2022-12-31 07:18 | NUR ---
Patient in room ORTHO 4006. I have received report from CHIQUI JIANG and had the opportunity to ask questions and assume patient care.
[2022-12-31] MEDS: NUT.TX.IMP.RENAL FXN,LAC-REDUC (Nepro) 237 ML VANILLA PO SCH ×3 (08:00→14:06)
[2022-12-31] MEDS: nystatin 15 GM powder TP SCH ×2 (08:00→13:00)
[2022-12-31] MEDS: insulin Lispro (HumaLOG) vial - multi-dose SQ SCH ×2 (09:38→14:14)
[2022-12-31] MEDS: simethicone 80mg chew tab PO SCH ×2 (09:40→12:42)
[2022-12-31] MEDS: calcium acetate 667mg (PhosLO) capsule PO SCH ×2 (09:40→12:42)
[2022-12-31] MEDS: ascorbic acid 500mg tablet PO SCH (09:41)
[2022-12-31] MEDS: cyanocobalamin 500mcg tablet PO SCH (09:41)
[2022-12-31] MEDS: cholecalciferol (vitamin D3) 1,000 unit (25mcg) tablet PO SCH (09:41)
[2022-12-31] MEDS: apixaban 2.5mg tablet PO SCH (09:41)
[2022-12-31] MEDS: fenofibrate 145mg tablet PO SCH (09:42)
[2022-12-31 10:00] VITALS: BP 137/59; PULSE 97; RESP 17; TEMP 97.3; O2SAT 93
--- NOTE | 2022-12-31 11:27 | NUR ---
Spoke to Dr Red to clarify regarding an order for HD today, ordered to cancel and do HD treatment in am with same orders.
[2022-12-31 11:53] LABS: TOTAL CELLS COUNTED 100
[2022-12-31 11:54] LABS: ANISOCYTOSIS 3+; PLATELET ESTIMATE DECREASED
[2022-12-31] MEDS: LIDOcaine 5% patch TP SCH (16:54)
[2022-12-31] MEDS: cefepime inj. 0.5 GM in normal saline 100ml IV soln 100 ML IV SCH (16:57)
[2022-12-31 17:20] VITALS: RESP 16
--- NOTE | 2022-12-31 18:14 | NUR ---
All cares given to patient medicated x2 for chronic back pain.. Worked with PT see note. Wound care done and pictured. Report called to Zoe FLORIAN at [facility]. patient transferred to [facility] via ambulance in stable condition 1745hrs in stable condition with ambulance personel
[2023-01-01] MEDS ORDERED: heparin 1,000unit/ml 10ml vial 10 ML IV ONE (08:00)
[2023-01-01] MEDS ORDERED: EPOETIN ALFA-EPBX 20,000 UNIT/ML 1 ML MDV IV ONE (08:00)
[2023-01-01] MEDS ORDERED: heparin 1,000 units/ml 10ml inj IV ONE (08:00)
[2023-01-01] MEDS ORDERED: heparin 1,000 units/ml 10ml inj HE ONE (08:00)
== END 2022-12-31 17:59 | DRG 871 ==
LOC: ER 11:51 → ED HOLD 17:14 → UNDOADMIN 17:23 → ED HOLD 17:23 → CICU 2S 17:30 → ORTHO 4S 12-28 10:13
PROVIDERS: ADMIT Student in an Organized Health Care Education/Training Program; ATTEND Student in an Organized Health Care Education/Training Program
PROC: 5A1D70Z Performance of Urinary Filtration, Intermittent, Less than 6 Hours Per Day (ICD-10-PCS; 2022-12-25)
PROC: 5A09357 Assistance with Respiratory Ventilation, Less than 24 Consecutive Hours, Continuous Positive Airway Pressure (ICD-10-PCS; principal; 2022-12-26)
PROC: BW251ZZ Computerized Tomography (CT Scan) of Chest, Abdomen and Pelvis using Low Osmolar Contrast (ICD-10-PCS; 2022-12-26)
PROC: 5A09357 Assistance with Respiratory Ventilation, Less than 24 Consecutive Hours, Continuous Positive Airway Pressure (ICD-10-PCS; 2022-12-27)
PROC: 5A1D70Z Performance of Urinary Filtration, Intermittent, Less than 6 Hours Per Day (ICD-10-PCS; 2022-12-27)
PROC: 5A09357 Assistance with Respiratory Ventilation, Less than 24 Consecutive Hours, Continuous Positive Airway Pressure (ICD-10-PCS; 2022-12-28)
PROC: 5A09357 Assistance with Respiratory Ventilation, Less than 24 Consecutive Hours, Continuous Positive Airway Pressure (ICD-10-PCS; 2022-12-29)
PROC: 5A09357 Assistance with Respiratory Ventilation, Less than 24 Consecutive Hours, Continuous Positive Airway Pressure (ICD-10-PCS; 2022-12-30)
PROC: 5A1D70Z Performance of Urinary Filtration, Intermittent, Less than 6 Hours Per Day (ICD-10-PCS; 2022-12-30)
DX: A41.9 Sepsis, unspecified organism (principal); G93.41 Metabolic encephalopathy; N18.6 End stage renal disease; R57.1 Hypovolemic shock; R65.21 Severe sepsis with septic shock; Z68.42 Body mass index [BMI] 45.0-49.9, adult; A04.72 Enterocolitis due to Clostridium difficile, not specified as recurrent; N39.0 Urinary tract infection, site not specified; L03.317 Cellulitis of buttock; I13.2 Hypertensive heart and chronic kidney disease with heart failure and with stage 5 chronic kidney disease, or end stage renal disease; E87.1 Hypo-osmolality and hyponatremia; N17.9 Acute kidney failure, unspecified; L02.31 Cutaneous abscess of buttock; E87.5 Hyperkalemia; E11.22 Type 2 diabetes mellitus with diabetic chronic kidney disease; E78.5 Hyperlipidemia, unspecified; D63.8 Anemia in other chronic diseases classified elsewhere; G89.29 Other chronic pain; I50.9 Heart failure, unspecified; D69.6 Thrombocytopenia, unspecified; E11.51 Type 2 diabetes mellitus with diabetic peripheral angiopathy without gangrene; L89.151 Pressure ulcer of sacral region, stage 1; G47.33 Obstructive sleep apnea (adult) (pediatric); E66.01 Morbid (severe) obesity due to excess calories; E11.649 Type 2 diabetes mellitus with hypoglycemia without coma; M54.9 Dorsalgia, unspecified; M48.061 Spinal stenosis, lumbar region without neurogenic claudication; I87.8 Other specified disorders of veins; L89.319 Pressure ulcer of right buttock, unspecified stage; M54.50 Low back pain, unspecified; I27.20 Pulmonary hypertension, unspecified; D53.9 Nutritional anemia, unspecified; K60.3 Anal fistula; I27.81 Cor pulmonale (chronic); Z96.641 Presence of right artificial hip joint; I95.9 Hypotension, unspecified; R19.7 Diarrhea, unspecified; I25.10 Atherosclerotic heart disease of native coronary artery without angina pectoris; I48.91 Unspecified atrial fibrillation; Z82.49 Family history of ischemic heart disease and other diseases of the circulatory system; Z82.5 Family history of asthma and other chronic lower respiratory diseases; Z83.3 Family history of diabetes mellitus; Z99.2 Dependence on renal dialysis; Z88.8 Allergy status to other drugs, medicaments and biological substances; Z79.899 Other long term (current) drug therapy; Z79.4 Long term (current) use of insulin; Z95.0 Presence of cardiac pacemaker; I25.2 Old myocardial infarction; Z85.828 Personal history of other malignant neoplasm of skin
CPT/HCPCS: 36415; 71045; 71260; 72128; 72131; 74177; 80048; 80053; 80202; 81001; 82570; 82948; 83605; 83615; 83735; 83880; 83935; 84100; 84133; 84145; 84156; 84300; 85007; 85008; 85025; 85610; 85730; 86022; 86885; 86900; 86901; 87040; 87045; 87046; 87088; 87207; 87324; 87340; 87449; 89055; 93005; 93306; 94760; 97110; 97161; 97530; 99285; A4615; A4620; A4649; A6213; A6222; A6223; A6250; A6449; C1758; G0378; J0692; J1170; J1644; J1650; J1815; J2270; J3370; J3490; J7030; J7040; P9047; Q4081; Q9963; Q9967

== ENCOUNTER 2023-04-14 09:33 | Inpatient (IN) | payer MEDICARE, BC ==
[~2023-04-14] VITALS: Ht 181.6 cm; Wt 123.2 kg
[~2023-04-14 09:33] MED LIST changes: -APIX5TAB3 PO; -ASCO500C18 PO; -CHOL100025 PO; -CYAN-104 PO; -FERR-119 PO; -FURO-149 PO; -HYDR-4294 PO; -INSU100I75; -INSU100I8; -INSU100V9 SQ; -ISOS30TA84 PO; -OXYC-145 PO; -SACU1TAB7 PO; -SEVE800T7; -SIMV-42 PO; +TIZA-205 PO
[2023-04-14] MEDS ORDERED: normal saline 500ml IV soln 500 ML IV SCH (10:20)
[2023-04-14] MEDS ORDERED: morphine 4 MG/ML inj SYRINge IV ONE ×2 (10:20→14:40)
[2023-04-14] MEDS ORDERED: ondansetron/PF 4mg/2ml inj IV ONE (10:20)
[2023-04-14 10:28] LABS: BASOPHILS # (AUTO) 0.1 X10'3 (0-0.2); EOSINOPHILS # (AUTO) 0.1 X10'3 (0-0.9); HEMATOCRIT 38.9 % (42.0-52.0); HEMOGLOBIN 12.4 g/dl (14.0-17.9); LYMPHOCYTES # (AUTO) 2.1 X10'3 (1.1-4.8); LYMPHOCYTES % (AUTO) 17.5 % (21-51); MEAN CORPUSCULAR VOLUME 103.2 FL (78-98); MEAN PLATELET VOLUME 8.8 FL (7.4-10.4); MONOCYTES # (AUTO) 1.8 X10'3 (0-0.9); MONOCYTES % (AUTO) 14.7 % (2-12); NEUTROPHILS # (AUTO) 7.9 X10'3 (1.8-7.7); NEUTROPHILS % (AUTO) 65.8 % (42-75); PLATELET COUNT 163 X10'3 (140-440); RED BLOOD COUNT 3.77 X10'6 (4.70-6.10); RED CELL DISTRIBUTION WIDTH 18.8 % (11.5-14.5)
[2023-04-14] MEDS ORDERED: iohexol 300mg/ml 100ml inj. ONE (10:29)
[2023-04-14 10:38] LABS: ALANINE AMINOTRANSFERASE 36 U/L (12-78); ALBUMIN 2.7 G/DL (3.4-5.0); ALBUMIN/GLOBULIN RATIO 0.5 (1.1-1.5); ALKALINE PHOSPHATASE 64 IU/L (46-116); ANION GAP 9 (8-16); ASPARTATE AMINO TRANSFERASE 62 U/L (10-37); BLOOD UREA NITROGEN 33 MG/DL (7-18); BUN/CREATININE RATIO 4.6 (10.0-20.0); CALCIUM 9.6 MG/DL (8.5-10.1); CHLORIDE 95 MMOL/L (99-107); CREATININE 7.14 MG/DL (0.60-1.10); GLUCOSE 220 MG/DL (70-104); SODIUM 135 MMOL/L (135-145); TOTAL CARBON DIOXIDE 31.4 MMOL/L (24-32); TOTAL PROTEIN 7.8 G/DL (6.4-8.2); eCRCL 10 ML/MIN; eGFR 8 ML/MIN
[2023-04-14] MEDS ORDERED: piperacillin/tazo 4.5gm/100ml 100 ML IV ONE (10:50)
[2023-04-14] MEDS ORDERED: vancomycin/NS 1 GM ADD-VANTAGE 250 ML IV ONE (10:55)
[2023-04-14 11:17] LABS: PLATELET ESTIMATE NORMAL
[2023-04-14 11:18] LABS: ANISOCYTOSIS 2+; LARGE PLATELETS FEW
--- NOTE | 2023-04-14 12:08 | NUR ---
iv infiltrated. Fluids- vanco & ns stopped. Iv removed cannula intact. Picc line nurse called.
--- NOTE | 2023-04-14 12:40 | NUR ---
PICC RN at bedside, ashley and fluids started late d/t difficult IV.
--- NOTE | 2023-04-14 13:14 | NUR ---
MD aware of pt's home meds and stated they can wait for pt to floor".
[2023-04-14] MEDS ORDERED: SEVE800T8 PO (13:36)
[2023-04-14] MEDS ORDERED: DOXY100T2 PO (13:36)
[2023-04-14] MEDS ORDERED: PANT40TA54 PO (13:36)
[2023-04-14] MEDS ORDERED: LANTUS SQ (13:36)
[2023-04-14] MEDS ORDERED: MIDO10TA PO (13:36)
[2023-04-14] MEDS ORDERED: HYDROcodone/acetaminophen 5mg/325mg tablet PO PRN (15:05)
[2023-04-14] MEDS ORDERED: morphine 2 MG/ML inj. syringe IV PRN ×2 (15:05)
[2023-04-14] MEDS ORDERED: magnesium Cl slow-release 64mg tablet PO PRN (15:05)
[2023-04-14] MEDS ORDERED: mag hydrox/Alum hydrox/simeth 30ml oral suspension PO PRN (15:05)
[2023-04-14] MEDS ORDERED: magnesium 2GM in 50ml NS 50 ML IV PRN (15:05)
[2023-04-14] MEDS ORDERED: acetaminophen 325mg tablet PO PRN ×2 (15:05)
[2023-04-14] MEDS ORDERED: magnesium 4gm in 100ml NS 100 ML IV PRN (15:05)
[2023-04-14] MEDS ORDERED: ondansetron/PF 4mg/2ml inj IV PRN (15:05)
[2023-04-14] MEDS ORDERED: potassium Cl 20 mEq SR tablet PO PRN ×2 (15:05)
[2023-04-14] MEDS ORDERED: magnesium hydroxide 30ml (MOM) UD suspension PO PRN (15:05)
[2023-04-14] MEDS ORDERED: potassium Cl 40MEQ/1/2NS 520ml 520 ML IV PRN (15:05)
[2023-04-14] MEDS ORDERED: glucagon, human recombinant 1mg kit SUBCUT PRN (16:40)
[2023-04-14] MEDS ORDERED: MESSAGE TO PHARMACY PO ONE (16:40)
[2023-04-14] MEDS ORDERED: DEXTROSE 15 GM of carb/4 tabs (each vial/BOTTLE has 4 tablets) PO PRN ×2 (16:40)
[2023-04-14] MEDS ORDERED: dextrose 50%-water 50ml dispensing syringe IV PRN ×2 (16:40)
[2023-04-14] MEDS ORDERED: insulin Lispro (HumaLOG) vial - multi-dose SQ SCH (16:40)
[2023-04-14 18:06] LABS: HEMOGLOBIN A1C 5.7 % (4.5-6.2)
--- NOTE | 2023-04-14 18:40 | NUR ---
Patient in room ORTHO 4022. I have received report from HCIQUI Mackenzie and had the opportunity to ask questions and assume patient care.
--- NOTE | 2023-04-14 18:41 | NUR ---
received report almost an hour ago, patient has not arrived to floor, and gave report to abigail montano
[2023-04-14 19:15] VITALS: BP 118/49; PULSE 108; RESP 18; TEMP 96.8
[2023-04-14] MEDS: docusate sod 100mg capsule PO SCH (19:57)
[2023-04-14] MEDS: HYDROcodone/acetaminophen 10/325mg tab PO PRN (19:58)
[2023-04-14 20:00] VITALS: RESP 17; O2SAT 98
[2023-04-14] MEDS: K and/or MAG REPLACEMENT MC SCH (20:00)
[2023-04-14] MEDS: midodrine tablet 2.5 MG TABLET PO SCH (21:00)
[2023-04-14] MEDS: insulin glargine (Lantus) pen - multi-dose SQ SCH (21:00)
[2023-04-14] MEDS: atorvastatin 20mg tablet PO SCH (21:00)
[2023-04-14 22:00] VITALS: BP 80/45; PULSE 76; RESP 17; TEMP 97.3; O2SAT 98
[2023-04-14] MEDS: piperacillin/tazo 4.5gm/100ml 100 ML IV SCH (22:13)
[2023-04-15] VITALS (14 sets, daily range): BP systolic 90–119; BP diastolic 29–64; PULSE 46–109; RESP 12–20; TEMP 97.3–98.6; O2SAT 89–99
--- NOTE | 2023-04-15 06:15 | NUR ---
Report receieved from Zeinab, care plan reviewed, questions answered.
--- NOTE | 2023-04-15 06:46 | NUR ---
Problems reprioritized. Patient report given, questions answered & plan of care reviewed with CHIQUI Mane.
[2023-04-15] MEDS ORDERED: albumin (human) 25% 100ml IV 100 ML IV PRN (08:00)
[2023-04-15] MEDS: K and/or MAG REPLACEMENT MC SCH ×2 (08:00→20:50)
[2023-04-15] MEDS: pantoprazole 40mg Tablet.DR PO SCH (08:00)
[2023-04-15] MEDS: metoprolol tartrate 50mg tablet PO SCH (08:00)
[2023-04-15] MEDS: FENOFIBRIC ACID 135 MG PO SCH (08:00)
[2023-04-15] MEDS ORDERED: EPOETIN ALFA-EPBX 20,000 UNIT/ML 1 ML MDV IV ONE (08:00)
[2023-04-15] MEDS: cyanocobalamin 500mcg tablet PO SCH (08:00)
[2023-04-15] MEDS: ascorbic acid 500mg tablet PO SCH (08:00)
[2023-04-15 08:37] LABS: BASOPHILS % (AUTO) 0.3 % (0-1); EOSINOPHILS # (AUTO) 0.2 X10'3 (0-0.9); EOSINOPHILS % (AUTO) 1.6 % (0-6); HEMATOCRIT 37.9 % (42.0-52.0); HEMOGLOBIN 12.1 g/dl (14.0-17.9); LYMPHOCYTES # (AUTO) 1.8 X10'3 (1.1-4.8); LYMPHOCYTES % (AUTO) 16.8 % (21-51); MEAN CORPUSCULAR HGB CONC 31.8 g/dL (33.0-36.5); MEAN CORPUSCULAR VOLUME 103.5 FL (78-98); MEAN PLATELET VOLUME 9.5 FL (7.4-10.4); MONOCYTES # (AUTO) 1.4 X10'3 (0-0.9); MONOCYTES % (AUTO) 13.1 % (2-12); NEUTROPHILS # (AUTO) 7.4 X10'3 (1.8-7.7); NEUTROPHILS % (AUTO) 68.2 % (42-75); PLATELET COUNT 116 X10'3 (140-440); RED BLOOD COUNT 3.66 X10'6 (4.70-6.10); RED CELL DISTRIBUTION WIDTH 18.2 % (11.5-14.5); WHITE BLOOD COUNT 10.9 X10'3 (4.5-11.0)
[2023-04-15 08:51] LABS: APTT 30 SECONDS (22-32); INR 1.3 INR
[2023-04-15 09:00] LABS: ALANINE AMINOTRANSFERASE 31 U/L (12-78); ALBUMIN 2.5 G/DL (3.4-5.0); ALBUMIN/GLOBULIN RATIO 0.5 (1.1-1.5); ANION GAP 8 (8-16); ASPARTATE AMINO TRANSFERASE 63 U/L (10-37); BILIRUBIN,TOTAL 1.3 MG/DL (0.1-1.0); BLOOD UREA NITROGEN 41 MG/DL (7-18); CALCIUM 9.6 MG/DL (8.5-10.1); CHLORIDE 96 MMOL/L (99-107); CREATININE 8.24 MG/DL (0.60-1.10); GLUCOSE 117 MG/DL (70-104); MAGNESIUM 1.9 MG/DL (1.5-2.4); PHOSPHORUS 7.1 MG/DL (2.3-4.5); POTASSIUM 5.3 MMOL/L (3.5-5.1); SODIUM 136 MMOL/L (135-145); TOTAL CARBON DIOXIDE 31.9 MMOL/L (24-32); TOTAL PROTEIN 7.2 G/DL (6.4-8.2); eCRCL 8 ML/MIN; eGFR 6 ML/MIN
[2023-04-15 09:01] LABS: ALKALINE PHOSPHATASE 58 IU/L (46-116)
[2023-04-15] MEDS: docusate sod 100mg capsule PO SCH ×2 (09:16→20:34)
[2023-04-15] MEDS: midodrine tablet 2.5 MG TABLET PO SCH ×3 (09:17→20:34)
[2023-04-15] MEDS: piperacillin/tazo 4.5gm/100ml 100 ML IV SCH ×2 (09:30→20:33)
[2023-04-15] MEDS: HYDROmorphone inj. 0.5 MG/0.5 ML DISP.SYRIN IV PRN ×2 (09:57→15:57)
[2023-04-15 10:12] LABS: BASOPHILS % (AUTO) 0.3 % (0-1); EOSINOPHILS # (AUTO) 0.1 X10'3 (0-0.9); EOSINOPHILS % (AUTO) 0.9 % (0-6); HEMATOCRIT 37.5 % (42.0-52.0); HEMOGLOBIN 11.9 g/dl (14.0-17.9); LYMPHOCYTES # (AUTO) 1.6 X10'3 (1.1-4.8); LYMPHOCYTES % (AUTO) 14.1 % (21-51); MEAN CORPUSCULAR HEMOGLOBIN 32.7 PG (27.0-31.0); MEAN CORPUSCULAR HGB CONC 31.7 g/dL (33.0-36.5); MEAN CORPUSCULAR VOLUME 103.2 FL (78-98); MEAN PLATELET VOLUME 8.9 FL (7.4-10.4); MONOCYTES # (AUTO) 1.4 X10'3 (0-0.9); MONOCYTES % (AUTO) 12.2 % (2-12); NEUTROPHILS # (AUTO) 8.1 X10'3 (1.8-7.7); NEUTROPHILS % (AUTO) 72.5 % (42-75); PLATELET COUNT 120 X10'3 (140-440); RED BLOOD COUNT 3.63 X10'6 (4.70-6.10); RED CELL DISTRIBUTION WIDTH 18.6 % (11.5-14.5); WHITE BLOOD COUNT 11.1 X10'3 (4.5-11.0)
[2023-04-15 10:40] LABS: ALANINE AMINOTRANSFERASE 28 U/L (12-78); ALBUMIN 2.5 G/DL (3.4-5.0); ALBUMIN/GLOBULIN RATIO 0.5 (1.1-1.5); ALKALINE PHOSPHATASE 52 IU/L (46-116); ANION GAP 7 (8-16); ASPARTATE AMINO TRANSFERASE 69 U/L (10-37); BILIRUBIN,TOTAL 1.1 MG/DL (0.1-1.0); BLOOD UREA NITROGEN 42 MG/DL (7-18); BUN/CREATININE RATIO 5.3 (10.0-20.0); CALCIUM 9.3 MG/DL (8.5-10.1); CHLORIDE 96 MMOL/L (99-107); CREATININE 7.93 MG/DL (0.60-1.10); GLUCOSE 126 MG/DL (70-104); POTASSIUM 5.4 MMOL/L (3.5-5.1); SODIUM 135 MMOL/L (135-145); TOTAL CARBON DIOXIDE 32.2 MMOL/L (24-32); TOTAL PROTEIN 7.2 G/DL (6.4-8.2); eCRCL 9 ML/MIN; eGFR 7 ML/MIN
--- NOTE | 2023-04-15 10:56 | NUR ---
per he is ok with pt getting pain meds with low bp due to the extent of his wounds and is aware of low bps and holding Lopressor. Addendum: 04/15/23 at 1058 by Alhaji Bateman RN per he is ok with pt getting pain meds with low bp due to the extent of his wounds and is aware of low bps and holding Lopressor. as well as abnormal labs
[2023-04-15 15:15] LABS: CHOLESTEROL 60 MG/DL (0-200); HDL CHOLESTEROL 20 MG/DL (35-60); LDL CHOLESTEROL 27 MG/DL (50-100); TRIGLYCERIDES 109 MG/DL (20-135)
--- NOTE | 2023-04-15 15:58 | NUR ---
PRESSURE ULCER EDUCATION: DEFINITION: A pressure ulcer is an area of skin that breaks down when you stay in one position too long. The constant pressure against the skin reduces the blood flow to that area and the affected tissue dies. CAUSES: "Being bedridden or in a wheelchair "Fragile skin "Having a chronic condition, such as diabetes or vascular disease "Inability to move certain parts of your body without assistance "Older age "Incontinence of urine or stool SYMPTOMS: "A reddened area that DOES NOT turn white when pressed on - this can be the beginning of a pressure ulcer "A blister, deep sore or a crater - these can be advanced pressure ulcers FIRST AID: "Relieve the pressure on this area "Keep the area clean and dry "Call your primary doctor if you see any of the above symptoms "DO NOT massage the area "DO NOT use a donut shaped or ring shaped pillow- these actually interfere with the blood flow and cause complications PREVENTION: "Check for pressure ulcers everyday "Change position at least every two hours to relieve pressure "Use items that help relieve pressure- pillows, sheepskin, foam padding, and powders. "Keep skin clean and dry "Eat healthy well balanced meals "Exercise daily IF YOU SEE ANY OF THESE SYMPTOMS WHILE IN THE HOSPITAL - TELL YOUR NURSE IMMEDIATELY. IF YOU SEE ANY OF THESE SYMPTOMS WHILE AT HOME OR HAVE ANY QUESTIONS OR CONCERNS ABOUT PRESSURE ULCERS - CALL YOUR PRIMARY DOCTOR IMMEDIATELY. Addendum: 04/15/23 at 1559 by Evelyn Azar LVN Amended: Links added.
[2023-04-15] MEDS: sevelamer carbonate 800mg tablet PO SCH (18:00)
--- NOTE | 2023-04-15 18:40 | NUR ---
Patient in room ORTHO 4022. I have received report from CHIQUI Mane and had the opportunity to ask questions and assume patient care.
--- NOTE | 2023-04-15 18:47 | NUR ---
Problems reprioritized. Patient report given, questions answered & plan of care reviewed with dusty hayes.
[2023-04-15] MEDS: HYDROcodone/acetaminophen 10/325mg tab PO PRN (20:36)
[2023-04-15] MEDS: insulin glargine (Lantus) pen - multi-dose SQ SCH (21:00)
[2023-04-15] MEDS: atorvastatin 20mg tablet PO SCH (21:00)
[2023-04-16] VITALS (24 sets, daily range): BP systolic 81–114; BP diastolic 19–76; PULSE 92–125; RESP 16–25; TEMP 96.7–98.2; O2SAT 90–100
--- NOTE | 2023-04-16 06:30 | NUR ---
Problems reprioritized. Patient report given, questions answered & plan of care reviewed with CHIQUI Mane.
--- NOTE | 2023-04-16 06:54 | NUR ---
Patient in room ORTHO 4022. I have received report from MAMIE FLORIAN and had the opportunity to ask questions and assume patient care.
[2023-04-16] MEDS: metoprolol tartrate 50mg tablet PO SCH (08:00)
[2023-04-16] MEDS: K and/or MAG REPLACEMENT MC SCH ×2 (08:00→20:00)
[2023-04-16] MEDS: docusate sod 100mg capsule PO SCH ×2 (08:12→21:37)
[2023-04-16] MEDS: piperacillin/tazo 4.5gm/100ml 100 ML IV SCH ×2 (08:12→21:36)
[2023-04-16] MEDS: pantoprazole 40mg Tablet.DR PO SCH (08:12)
[2023-04-16] MEDS: ascorbic acid 500mg tablet PO SCH (08:12)
[2023-04-16] MEDS: midodrine tablet 2.5 MG TABLET PO SCH ×3 (08:12→21:37)
[2023-04-16] MEDS: cyanocobalamin 500mcg tablet PO SCH (08:12)
[2023-04-16] MEDS: FENOFIBRIC ACID 135 MG PO SCH (08:18)
[2023-04-16] MEDS: sevelamer carbonate 800mg tablet PO SCH ×3 (08:18→18:00)
[2023-04-16] MEDS: HYDROcodone/acetaminophen 10/325mg tab PO PRN ×2 (08:19→21:45)
[2023-04-16 08:21] LABS: BASOPHILS % (AUTO) 0.2 % (0-1); EOSINOPHILS % (AUTO) 0.2 % (0-6); HEMATOCRIT 37.5 % (42.0-52.0); LYMPHOCYTES # (AUTO) 1.5 X10'3 (1.1-4.8); LYMPHOCYTES % (AUTO) 8.9 % (21-51); MEAN CORPUSCULAR HEMOGLOBIN 32.7 PG (27.0-31.0); MEAN CORPUSCULAR VOLUME 102.3 FL (78-98); MEAN PLATELET VOLUME 9.4 FL (7.4-10.4); MONOCYTES # (AUTO) 1.9 X10'3 (0-0.9); MONOCYTES % (AUTO) 11.6 % (2-12); NEUTROPHILS # (AUTO) 13.3 X10'3 (1.8-7.7); NEUTROPHILS % (AUTO) 79.1 % (42-75); PLATELET COUNT 112 X10'3 (140-440); RED BLOOD COUNT 3.67 X10'6 (4.70-6.10); WHITE BLOOD COUNT 16.8 X10'3 (4.5-11.0)
[2023-04-16 08:27] LABS: ALANINE AMINOTRANSFERASE 31 U/L (12-78); ALBUMIN 2.5 G/DL (3.4-5.0); ALBUMIN/GLOBULIN RATIO 0.5 (1.1-1.5); ALKALINE PHOSPHATASE 63 IU/L (46-116); ANION GAP 11 (8-16); ASPARTATE AMINO TRANSFERASE 63 U/L (10-37); BILIRUBIN,TOTAL 1.7 MG/DL (0.1-1.0); BLOOD UREA NITROGEN 38 MG/DL (7-18); BUN/CREATININE RATIO 5.3 (10.0-20.0); CALCIUM 9.2 MG/DL (8.5-10.1); CHLORIDE 94 MMOL/L (99-107); GLUCOSE 148 MG/DL (70-104); MAGNESIUM 1.8 MG/DL (1.5-2.4); PHOSPHORUS 8.3 MG/DL (2.3-4.5); POTASSIUM 5.9 MMOL/L (3.5-5.1); SODIUM 133 MMOL/L (135-145); TOTAL CARBON DIOXIDE 27.6 MMOL/L (24-32); TOTAL PROTEIN 7.4 G/DL (6.4-8.2); eCRCL 10 ML/MIN; eGFR 7 ML/MIN
[2023-04-16 08:28] LABS: APTT 31 SECONDS (22-32); INR 1.4 INR; PROTHROMBIN TIME 14.3 SECONDS (9.0-12.0)
[2023-04-16 08:47] LABS: ANISOCYTOSIS 2+; PLATELET ESTIMATE DECREASED
[2023-04-16 08:48] LABS: POLYCHROMASIA FEW
[2023-04-16 08:49] LABS: ELLIPTOCYTES FEW; TEAR DROP CELLS FEW
[2023-04-16 08:50] LABS: HOWELL-JOLLY BODIES FEW; TARGET CELLS FEW
[2023-04-16 08:54] LABS: STOMATOCYTES FEW
--- NOTE | 2023-04-16 11:07 | NUR ---
Page Sent PAGER ID: [phone] MESSAGE: [phone] Bogdan Spencer, ATTEMPTED TO CALL [facility]. I WANTED TO CONFIRM IF YOU WOULD LIKE THE LOPRESSOR TO BE GIVEN TODAY OR HELD AGAIN. PT BP IS STILL LOW 106/39 BUT HR IS 103. PLEASE LET ME KNOW. JANETH
--- NOTE | 2023-04-16 11:55 | NUR ---
PER MD NON ADMIN PTS LOPRESSOR DUE TO LOW BPS AND NOTIFIED MD OF ABNORMAL LABS. PER MD PT CAN HAVE RENAL DIET WITH FLUID RESTRICTIONS.
[2023-04-16] MEDS ORDERED: heparin 1,000unit/ml 10ml vial 10 ML IV ONE (13:35)
[2023-04-16] MEDS ORDERED: albumin (human) 25% 100ml IV 100 ML IV PRN (13:35)
[2023-04-16] MEDS ORDERED: heparin 1,000 units/ml 10ml inj IV ONE (13:35)
--- NOTE | 2023-04-16 14:00 | NUR ---
was going to change pt dressing dialysis nurse said not right now he is going to be doing dialysis and pt family agreed.
--- NOTE | 2023-04-16 14:01 | NUR ---
Low jaquan consult: Pt DX sepsis, ESRD, and rectal abscess per EMR. Pt presents with a low jaquan score of 12 per EMR. Per C note on 04/15 pt presents with several wounds such as unstageable wound to neck, unstageable PU to coccyx, full thickness abscess to perianal, and full thickness diabetic ulcer with exposed bone to right great toe per EMR. Per EMR pt started on HD noted pt receives HD three times a week outpatient since September 2021 and only has 1 kidney since . Pt prior on carbohydrate controlled with average PO intake of 37.5% x 2 meals. Discussed with RN regarding carbohydrate controlled diet not warranted given A1c of 5.7% and renal diet is appropriate given ESRD. Recommend Tin smoothie BIDWM to assist with wound healing; MD notified. Will continue to monitor and make recommendations as appropriate. Recommendations: 1.continue renal diet 2.Tin smoothie strawberry and peaches BIDWM to assist with wound healing;pending physician approval in EMR 3.continue Vitamin C, Vitamin B-12, and phos binder per MD 4.routine bowel care 5.weekly scaled wt Addendum: 04/16/23 at [address] Amended: Links added.
[2023-04-16 14:17] LABS: HBSAG SCREEN Negative (Negative)
--- NOTE | 2023-04-16 14:36 | NUR ---
was approached by dialysis nurse stating that dr mills wants pt to have dialysis now. surgeon aware but concerned due to pts infection, would like to know if dialysis could be done after surgery. dr mills said he will not be postponing it, pt will receive dialysis till he is ready to go to surgery. surgeon was made aware if this. anesthesiologist asked to have K rechecked after dialysis and loop drier operator didn't think it was necessary but said he will be putting that order in.
--- NOTE | 2023-04-16 15:30 | NUR ---
talked to dr Miguel, the plan is for him to try to work together with dr phillips for pts surgery later tonight.
--- NOTE | 2023-04-16 18:25 | NUR ---
Patient in room ORTHO 4022. I have received report from CHIQUI Mane and had the opportunity to ask questions and assume patient care.
--- NOTE | 2023-04-16 18:47 | NUR ---
Problems reprioritized. Patient report given, questions answered & plan of care reviewed with dusty hayes.
[2023-04-16] MEDS ORDERED: BUPIVAcaine/PF 2.5mg/ml (0.25%) 10ml vial ONE (18:49)
[2023-04-16] MEDS ORDERED: LIDOcaine 1% 30ml preserv. free vial ONE (18:49)
--- NOTE | 2023-04-16 18:53 | NUR ---
Problems reprioritized. Patient report given, questions answered & plan of care reviewed with swati hayes in recovery.
[2023-04-16] MEDS ORDERED: morphine 2 MG/ML inj. syringe IV PRN (19:20)
[2023-04-16] MEDS ORDERED: normal saline 1000ml 1,000 ML IV ONE (19:20)
[2023-04-16] MEDS ORDERED: HYDROmorphone/PF 0.2 MG/ML SYRINGE IV PRN ×2 (19:20)
[2023-04-16] MEDS ORDERED: ondansetron/PF 4mg/2ml inj IV PRN (19:20)
[2023-04-16] MEDS ORDERED: fentaNYL/PF 50MCG/1 ML 2ML syringe ONE (19:31)
[2023-04-16] MEDS ORDERED: BUPIVAcaine 0.25% w/Epi /PF 30ml vial IJ ONE (19:32)
[2023-04-16] MEDS ORDERED: LIDOcaine 1% 30ml preserv. free vial IJ ONE (20:07)
[2023-04-16] MEDS ORDERED: sugammadex 200mg/2ml injection IV ONE ×2 (20:22)
[2023-04-16] MEDS ORDERED: etomidate 2mg/ml inj. ONE (20:23)
[2023-04-16] MEDS ORDERED: rocuronium 10mg/ml inj IV ONE (20:23)
[2023-04-16] MEDS ORDERED: phenylephrine 10mg/ml inj. -priapism dosing ONE (20:23)
[2023-04-16] MEDS ORDERED: ondansetron/PF 4mg/2ml inj ONE (20:23)
[2023-04-16] MEDS ORDERED: LIDOcaine 2% (20mg/ml) 5ml vial ONE (20:23)
[2023-04-16] MEDS ORDERED: esmolol inj. 10 ML IV ONE (20:24)
[2023-04-16] MEDS ORDERED: morphine 4 MG/ML inj SYRINge IV ONE (20:32)
--- NOTE | 2023-04-16 20:41 | NUR ---
Received from OR via HOSPITAL BED, accompanied by Anesthesiologist DR SAHNI and report given by Anesthesiologist. PT IS GROGGY BUT RESPONDS TO VERBAL STIMULI. PT PLACED ON BEDSIDE MONITOR. PT IN A-FIB WITH HR IN 110'S-120'S. PT RECEIVING 10L O2 TO MASK AND TOLERATING WELL WITH O2 SAT >96%, WILL TITRATE DOWN PT TOLERATES. PT HAS 20G PIV TO RT FA WITH NS INFUSING ORDERED. PT HAS MESH UNDERWEAR ON THAT ARE CDI AND DRSG TO RT FOOT THAT IS CDI WELL. PT DENIES PAIN AT THIS TIME. WILL CONTINUE TO ASSESS
[2023-04-16] MEDS: insulin glargine (Lantus) pen - multi-dose SQ SCH (21:00)
--- NOTE | 2023-04-16 21:34 | NUR ---
ALL CRITERIA FOR TRANSFER BACK TO PATIENT ROOM HAS BEEN MET. VSS. PAIN AT A TOLERABLE LEVEL AND DRESSINGS SAME UPON ARRIVAL. REPORT GIVEN TO MAMIE FLORIAN AND ALL QUESTIONS ANSWERED. RN PRESENT OR AWARE THAT PATIENT HAS ARRIVED. BED LOW. CALL LIGHT PRESENT. 2 RAILS UP. CARE TURNED OVER TO RN FOLLOWING REPORT. BELONGINGS
[2023-04-16] MEDS: atorvastatin 20mg tablet PO SCH (21:37)
[2023-04-16] MEDS: HYDROmorphone inj. 0.5 MG/0.5 ML DISP.SYRIN IV PRN (23:23)
--- NOTE | 2023-04-16 23:53 | NUR ---
Charting by Vibha ALAN reviewed by Jon Obando RN
[2023-04-17] VITALS (11 sets, daily range): BP systolic 74–97; BP diastolic 22–49; PULSE 97–114; RESP 16–20; TEMP 97.1–98.3; O2SAT 91–96
--- NOTE | 2023-04-17 06:35 | NUR ---
Problems reprioritized. Patient report given, questions answered & plan of care reviewed with CHIQUI Gallo.
--- NOTE | 2023-04-17 06:57 | NUR ---
Patient in room ORTHO 4022. I have received report from dusty hayes and had the opportunity to ask questions and assume patient care.
[2023-04-17 07:43] LABS: BASOPHILS % (AUTO) 0.2 % (0-1); EOSINOPHILS # (AUTO) 0.1 X10'3 (0-0.9); EOSINOPHILS % (AUTO) 0.4 % (0-6); HEMATOCRIT 37.1 % (42.0-52.0); HEMOGLOBIN 11.8 g/dl (14.0-17.9); LYMPHOCYTES # (AUTO) 1.3 X10'3 (1.1-4.8); LYMPHOCYTES % (AUTO) 6.9 % (21-51); MEAN CORPUSCULAR HEMOGLOBIN 32.6 PG (27.0-31.0); MEAN CORPUSCULAR HGB CONC 31.7 g/dL (33.0-36.5); MEAN CORPUSCULAR VOLUME 102.9 FL (78-98); MEAN PLATELET VOLUME 9.2 FL (7.4-10.4); MONOCYTES # (AUTO) 2.5 X10'3 (0-0.9); MONOCYTES % (AUTO) 13.5 % (2-12); NEUTROPHILS # (AUTO) 14.7 X10'3 (1.8-7.7); PLATELET COUNT 104 X10'3 (140-440); RED BLOOD COUNT 3.61 X10'6 (4.70-6.10); WHITE BLOOD COUNT 18.6 X10'3 (4.5-11.0)
[2023-04-17] MEDS: metoprolol tartrate 50mg tablet PO SCH (08:00)
[2023-04-17] MEDS: K and/or MAG REPLACEMENT MC SCH ×2 (08:00→20:00)
[2023-04-17 08:08] LABS: ALANINE AMINOTRANSFERASE 25 U/L (12-78); ALBUMIN 2.3 G/DL (3.4-5.0); ALBUMIN/GLOBULIN RATIO 0.5 (1.1-1.5); ALKALINE PHOSPHATASE 69 IU/L (46-116); ANION GAP 15 (8-16); ASPARTATE AMINO TRANSFERASE 65 U/L (10-37); BILIRUBIN,TOTAL 1.9 MG/DL (0.1-1.0); BLOOD UREA NITROGEN 35 MG/DL (7-18); BUN/CREATININE RATIO 5.6 (10.0-20.0); CALCIUM 9.1 MG/DL (8.5-10.1); CHLORIDE 96 MMOL/L (99-107); CREATININE 6.29 MG/DL (0.60-1.10); GLUCOSE 160 MG/DL (70-104); MAGNESIUM 1.9 MG/DL (1.5-2.4); PHOSPHORUS 7.6 MG/DL (2.3-4.5); POTASSIUM 4.9 MMOL/L (3.5-5.1); SODIUM 138 MMOL/L (135-145); TOTAL CARBON DIOXIDE 27.3 MMOL/L (24-32); TOTAL PROTEIN 6.8 G/DL (6.4-8.2); eCRCL 11 ML/MIN; eGFR 9 ML/MIN
[2023-04-17 08:35] LABS: APTT 35 SECONDS (22-32); INR 1.4 INR; PROTHROMBIN TIME 14.6 SECONDS (9.0-12.0)
[2023-04-17] MEDS: docusate sod 100mg capsule PO SCH ×2 (09:21→20:32)
[2023-04-17] MEDS: piperacillin/tazo 4.5gm/100ml 100 ML IV SCH ×2 (09:21→20:32)
[2023-04-17] MEDS: FENOFIBRIC ACID 135 MG PO SCH (09:22)
[2023-04-17] MEDS: pantoprazole 40mg Tablet.DR PO SCH (09:22)
[2023-04-17] MEDS: midodrine tablet 2.5 MG TABLET PO SCH ×3 (09:22→20:32)
[2023-04-17] MEDS: sevelamer carbonate 800mg tablet PO SCH ×3 (09:23→18:00)
[2023-04-17] MEDS: cyanocobalamin 500mcg tablet PO SCH (09:23)
[2023-04-17] MEDS: ascorbic acid 500mg tablet PO SCH (09:23)
[2023-04-17] MEDS: HYDROcodone/acetaminophen 10/325mg tab PO PRN (09:24)
[2023-04-17] MEDS: HYDROmorphone inj. 0.5 MG/0.5 ML DISP.SYRIN IV PRN (11:42)
--- NOTE | 2023-04-17 12:00 | NUR ---
spoke with dr phillips re wound care. states no packing needs to be reapplied to wound. keep wound clean and dry with gauze. states there was no abscess or puss in wound, indicative of no infection. states he is signing off care.
--- NOTE | 2023-04-17 13:00 | NUR ---
The patient stated the characteristics of his BM. I did not see his BM to make a determination on the characteristics Addendum: 04/17/23 at 1612 by Anastacia MARI Amended: Links added.
--- NOTE | 2023-04-17 16:33 | NUR ---
Student documentation: I have reviewed and agree physical assessments performed and documented by SN Niko
--- NOTE | 2023-04-17 18:18 | NUR ---
Problems reprioritized. Patient report given, questions answered & plan of care reviewed with jorge patel rn.
--- NOTE | 2023-04-17 18:30 | NUR ---
Patient in room ORTHO 4022. I have received report from KATHY FLORIAN and had the opportunity to ask questions and assume patient care.
[2023-04-17] MEDS: atorvastatin 20mg tablet PO SCH (20:32)
[2023-04-17] MEDS: insulin glargine (Lantus) pen - multi-dose SQ SCH (21:00)
[2023-04-18] VITALS (10 sets, daily range): BP systolic 94–108; BP diastolic 40–55; PULSE 70–124; RESP 15–16; TEMP 97.3–97.5; O2SAT 97–99
[2023-04-18 06:30] LABS: INR 1.5 INR; PROTHROMBIN TIME 16.2 SECONDS (9.0-12.0)
[2023-04-18 06:31] LABS: HEMOGLOBIN 12.2 g/dl (14.0-17.9); MEAN CORPUSCULAR VOLUME 101.9 FL (78-98)
--- NOTE | 2023-04-18 06:33 | NUR ---
Problems reprioritized. Patient report given, questions answered & plan of care reviewed with RAYO GUAMAN.
[2023-04-18 06:34] LABS: BASOPHILS # (AUTO) 0.1 X10'3 (0-0.2); BASOPHILS % (AUTO) 0.3 % (0-1); EOSINOPHILS # (AUTO) 0.2 X10'3 (0-0.9); EOSINOPHILS % (AUTO) 1.1 % (0-6); HEMATOCRIT 37.4 % (42.0-52.0); LYMPHOCYTES # (AUTO) 1.7 X10'3 (1.1-4.8); LYMPHOCYTES % (AUTO) 9.5 % (21-51); MEAN CORPUSCULAR HEMOGLOBIN 33.1 PG (27.0-31.0); MEAN CORPUSCULAR HGB CONC 32.5 g/dL (33.0-36.5); MEAN PLATELET VOLUME 8.9 FL (7.4-10.4); MONOCYTES # (AUTO) 2.1 X10'3 (0-0.9); MONOCYTES % (AUTO) 11.8 % (2-12); NEUTROPHILS # (AUTO) 13.8 X10'3 (1.8-7.7); NEUTROPHILS % (AUTO) 77.3 % (42-75); PLATELET COUNT 104 X10'3 (140-440); RED BLOOD COUNT 3.67 X10'6 (4.70-6.10); RED CELL DISTRIBUTION WIDTH 18.7 % (11.5-14.5); WHITE BLOOD COUNT 17.9 X10'3 (4.5-11.0)
[2023-04-18 06:39] LABS: ALANINE AMINOTRANSFERASE 9 U/L (12-78); ALBUMIN 2.2 G/DL (3.4-5.0); ALBUMIN/GLOBULIN RATIO 0.5 (1.1-1.5); ALKALINE PHOSPHATASE 62 IU/L (46-116); ANION GAP 13 (8-16); ASPARTATE AMINO TRANSFERASE 79 U/L (10-37); BILIRUBIN,TOTAL 2.1 MG/DL (0.1-1.0); BLOOD UREA NITROGEN 54 MG/DL (7-18); BUN/CREATININE RATIO 6.8 (10.0-20.0); CALCIUM 9.1 MG/DL (8.5-10.1); CHLORIDE 94 MMOL/L (99-107); CREATININE 7.97 MG/DL (0.60-1.10); GLUCOSE 178 MG/DL (70-104); PHOSPHORUS 8.2 MG/DL (2.3-4.5); POTASSIUM 5.5 MMOL/L (3.5-5.1); SODIUM 133 MMOL/L (135-145); TOTAL CARBON DIOXIDE 26.3 MMOL/L (24-32); TOTAL PROTEIN 6.9 G/DL (6.4-8.2); eCRCL 9 ML/MIN; eGFR 7 ML/MIN
[2023-04-18] MEDS ORDERED: heparin 1,000 units/ml 10ml inj IV ONE (07:25)
[2023-04-18] MEDS ORDERED: albumin (human) 25% 100ml IV 100 ML IV PRN (07:25)
[2023-04-18] MEDS ORDERED: heparin 1,000unit/ml 10ml vial 10 ML IV ONE (07:25)
[2023-04-18] MEDS: metoprolol tartrate 50mg tablet PO SCH (08:00)
[2023-04-18] MEDS: FENOFIBRIC ACID 135 MG PO SCH (08:00)
[2023-04-18] MEDS: K and/or MAG REPLACEMENT MC SCH (08:00)
[2023-04-18] MEDS: docusate sod 100mg capsule PO SCH (08:11)
[2023-04-18] MEDS: midodrine tablet 2.5 MG TABLET PO SCH ×2 (08:11→13:18)
[2023-04-18] MEDS: ascorbic acid 500mg tablet PO SCH (08:12)
[2023-04-18] MEDS: pantoprazole 40mg Tablet.DR PO SCH (08:12)
[2023-04-18] MEDS: cyanocobalamin 500mcg tablet PO SCH (08:12)
[2023-04-18] MEDS: sevelamer carbonate 800mg tablet PO SCH ×2 (08:12→13:18)
--- NOTE | 2023-04-18 09:00 | NUR ---
ASSORTMENT PLANNER documentation: I have reviewed and agree with all interventions, assessments performed and documented by Анна GUAMAN.
--- NOTE | 2023-04-18 09:00 | NUR ---
FLOODPLAIN MANAGER Medication Administration: For this medication-pass time frame, all medication were reviewed, dispensed, administered and documented per hospital policy by Анна GUAMAN.
[2023-04-18] MEDS: HYDROcodone/acetaminophen 10/325mg tab PO PRN (13:18)
[2023-04-18] MEDS: HYDROmorphone inj. 0.5 MG/0.5 ML DISP.SYRIN IV PRN (13:49)
--- NOTE | 2023-04-18 16:45 | NUR ---
Patient transported by [facility] to [facility]. Called report to Shyanne FLORIAN. Patient CPAP and medications left with patient. All paper work given to transporters. Patient left on [facility]. Alert x4. Vital signs stable.
== END 2023-04-18 17:00 | DRG 853 ==
LOC: ER 09:34 → ED HOLD 15:07 → ORTHO 4S 19:00
PROVIDERS: ADMIT Internal Medicine; ATTEND Internal Medicine
PROC: BW211ZZ Computerized Tomography (CT Scan) of Abdomen and Pelvis using Low Osmolar Contrast (ICD-10-PCS; 2023-04-14)
PROC: 5A1D70Z Performance of Urinary Filtration, Intermittent, Less than 6 Hours Per Day (ICD-10-PCS; 2023-04-14)
PROC: 3E0T3BZ Introduction of Anesthetic Agent into Peripheral Nerves and Plexi, Percutaneous Approach (ICD-10-PCS; 2023-04-16)
PROC: 5A1D70Z Performance of Urinary Filtration, Intermittent, Less than 6 Hours Per Day (ICD-10-PCS; 2023-04-16)
PROC: 0Y6P0Z0 Detachment at Right 1st Toe, Complete, Open Approach (ICD-10-PCS; principal; 2023-04-16 19:25)
PROC: 0DBP0ZZ Excision of Rectum, Open Approach (ICD-10-PCS; 2023-04-16 19:25)
PROC: 5A1D70Z Performance of Urinary Filtration, Intermittent, Less than 6 Hours Per Day (ICD-10-PCS; 2023-04-18)
DX: A41.9 Sepsis, unspecified organism (principal); N18.6 End stage renal disease; K61.1 Rectal abscess; I50.22 Chronic systolic (congestive) heart failure; M86.8X7 Other osteomyelitis, ankle and foot; L89.322 Pressure ulcer of left buttock, stage 2; E11.22 Type 2 diabetes mellitus with diabetic chronic kidney disease; L97.519 Non-pressure chronic ulcer of other part of right foot with unspecified severity; E87.5 Hyperkalemia; E83.39 Other disorders of phosphorus metabolism; E78.5 Hyperlipidemia, unspecified; E11.69 Type 2 diabetes mellitus with other specified complication; L89.159 Pressure ulcer of sacral region, unspecified stage; E11.40 Type 2 diabetes mellitus with diabetic neuropathy, unspecified; K64.8 Other hemorrhoids; I48.91 Unspecified atrial fibrillation; Z95.0 Presence of cardiac pacemaker; Z79.4 Long term (current) use of insulin; Z79.899 Other long term (current) drug therapy; Z88.8 Allergy status to other drugs, medicaments and biological substances; Z87.891 Personal history of nicotine dependence; Z99.2 Dependence on renal dialysis; Z82.5 Family history of asthma and other chronic lower respiratory diseases
CPT/HCPCS: 36415; 73620; 74177; 80053; 80061; 82948; 83036; 83605; 83735; 84100; 84132; 84145; 85008; 85025; 85610; 85651; 85730; 87040; 87070; 87075; 87077; 87186; 87340; 93005; 96365; 96375; 97161; 97530; 97535; 99285; A4215; A4615; A4618; A4649; A6196; A6212; A6213; A6222; A6223; A6250; A6253; A6258; A6407; A6446; A6449; A7000; E1594; G0257; G0378; J1170; J1644; J1815; J2270; J2370; J2405; J2543; J3010; J3370; J3490; J7030; J7040; J7120; Q9967; S0020